=== PATIENT | female | born 1990 | race African-American/Black ===

== ENCOUNTER 2018-01-11 19:59 | Emergency (ER) | payer OTHER, SELFPAY ==
--- NOTE | 2018-01-11 20:59 | RAD REPORT ---
EXAM DESCRIPTION: RAD - Chest Single View - 01/11/2018 8:51 pm CLINICAL HISTORY: Chest pain COMPARISON: None. TECHNIQUE: AP portable chest image was obtained 2045 hours . FINDINGS: Lungs are clear. Heart size is upper normal. Vasculature within normal limits. No measurab le pleural effusion and no pneumothorax. No gross bony abnormality seen. No acute aortic findings juan alberto pected. IMPRESSION: No acute cardiopulmonary process.
[2018-01-11 21:28] LABS: Protime INR 1.08
[2018-01-11 21:29] LABS: Absolute Lymphocytes (CBC) 0.7 K/uL (0.7-4.9); Absolute Monocytes 0.3 K/uL (0.1-1.3); Absolute Neutrophil 2.7 K/uL (1.8-8.0); Basophils % 0.3 % (0-1.3); Eosinophils % 0.3 % (0-4.4); Hematocrit 30.3 % (36.0-45.0); Lymphocytes % 19.6 % (15.3-44.8); MCH 25.4 pg (27.0-35.0); MCV 77.7 fL (80-100); MPV 8.9 fL (7.6-11.3); Monocytes % 7.3 % (3.3-12.3); RBC Red Blood Cell Count 3.91 M/uL (3.86-4.86)
[2018-01-11 21:30] LABS: BUN Blood Urea Nitrogen 10 mg/dL (7-18); Bicarbonate 26 mmol/L (21-32); Glucose Level 87 mg/dL (74-106); NT PRO-BNP 22 pg/mL (<125); Potassium 3.5 mmol/L (3.5-5.1); Sodium Level 138 mmol/L (136-145)
--- NOTE | 2018-01-11 21:33 | EDPHYS ---
Physician Documentation [facility] Name: Bernadette Ugarte Age: 27 yrs Sex: Female : 1990 Arrival Date: 01/11/2018 Time: 20:04 Bed 14 Private MD: ED Physician Jasson Hodges HPI: 01/11 20:37 This 27 yrs old Black Female presents to ER via EMS with complaints of chest jr8 pain/Dizziness. 20:37 Patient stated that while in long-term had chest pain and dizziness. Stated that her blood jr8 pressure was high. Has been off of her medications for some time now. Has not had period in 2 months . Severity of symptoms: At their worst the symptoms were moderate in the emergency department the symptoms have improved. It is unknown whether or not the patient has had similar symptoms in the past. The patient has not recently seen a physician. 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 - Social history:: Smoking status: Patient/guardian denies using tobacco. - Ebola Screening: : No symptoms or risks identified at this time. ROS: 20:37 Eyes: Negative for injury, pain, redness, and discharge, ENT: Negative for injury, jr8 pain, and discharge, Neck: Negative for injury, pain, and swelling, Respiratory: Negative for shortness of breath, cough, wheezing, and pleuritic chest pain, Abdomen/GI: Negative for abdominal pain, nausea, vomiting, diarrhea, and constipation, Back: Negative for injury and pain, MS/Extremity: Negative for injury and deformity, Skin: Negative for injury, rash, and discoloration. 20:37 Cardiovascular: Positive for chest pain, Negative for edema, orthopnea, palpitations, paroxysmal nocturnal dyspnea. 20:37 Neuro: Positive for dizziness, Negative for altered mental status, gait disturbance, headache, hearing loss, loss of consciousness, numbness, seizure activity, speech changes, syncope, near syncope, tingling, tinnitus, tremor, visual changes, weakness. Exam: 20:37 Eyes: Pupils equal round and reactive to light, extra-ocular motions intact. Lids and jr8 lashes normal. Conjunctiva and sclera are non-icteric and not injected. Cornea within normal limits. Periorbital areas with no swelling, redness, or edema. ENT: Nares patent. No nasal discharge, no septal abnormalities noted. Tympanic membranes are normal and external auditory canals are clear. Oropharynx with no redness, swelling, or masses, exudates, or evidence of obstruction, uvula midline. Mucous membranes moist. Neck: Trachea midline, no thyromegaly or masses palpated, and no cervical lymphadenopathy. Supple, full range of motion without nuchal rigidity, or vertebral point tenderness. No Meningismus. Cardiovascular: Regular rate and rhythm with a normal S1 and S2. Auscultated thrill noted on the systolic beat. Normal PMI, no JVD. No pulse deficits. Respiratory: Lungs have equal breath sounds bilaterally, clear to auscultation and percussion. No rales, rhonchi or wheezes noted. No increased work of breathing, no retractions or nasal flaring. Abdomen/GI: Soft, non-tender, with normal bowel sounds. No distension or tympany. No guarding or rebound. No evidence of tenderness throughout. Back: No spinal tenderness. No costovertebral tenderness. Full range of motion. Skin: Warm, dry with normal turgor. Normal color with no rashes, no lesions, and no evidence of cellulitis. MS/ Extremity: Pulses equal, no cyanosis. Neurovascular intact. Full, normal range of motion. Neuro: Awake and alert, GCS 15, oriented to person, place, time, and situation. Cranial nerves II-XII grossly intact. Motor strength 5/5 in all extremities. Sensory grossly intact. Cerebellar exam normal. Normal gait. Vital Signs: 20:04 BP 122 / 84; Pulse 89; Resp 18; Temp 98.7; Pulse Ox 100% on R/A; Weight 104.33 kg; ea Height 5 ft. 2 in. (157.48 cm); Pain 8/10; 21:08 BP 135 / 94; Pulse 82; Resp 18; Pulse Ox 99% on R/A; aa1 21:40 BP 140 / 85; Pulse 81; Resp 16; Pulse Ox 100% ; aa1 20:04 Body Mass Index 42.07 (104.33 kg, 157.48 cm) ea MDM: 20:17 Patient medically screened. jr8 21:31 Data reviewed: vital signs, nurses notes, lab test result(s), EKG, radiologic studies, jr8 plain films, and as a result, I will discharge patient. Data interpreted: Pulse oximetry: on room air is 99 %. Interpretation: normal. Counseling: I had a detailed discussion with the patient and/or guardian regarding: the historical points, exam findings, and any diagnostic results supporting the discharge/admit diagnosis, lab results, radiology results, the need for outpatient follow up, a family practitioner, to return to the emergency department if symptoms worsen or persist or if there are any questions or concerns that arise at home. Response to treatment: the patient's symptoms have resolved after treatment. ED course: More then likely secondary to HTN. BP better after EMS gave her medication . 01/11 20:33 Order name: Basic Metabolic Panel; Complete Time: 21:01/11 20:33 Order name: CBC with Diff; Complete Time: 21:01/11 20:33 Order name: Magnesium; Complete Time: :01/11 20:33 Order name: NT PRO-BNP; Complete Time: :01/11 20:33 Order name: PT-INR; Complete Time: 21:31 01/11 20:33 Order name: Troponin (emerg Dept Use Only); Complete Time: 21:29 01/11 20:33 Order name: XRAY Chest (1 view); Complete Time: 21:00 01/11 20:33 Order name: EKG; Complete Time: 20:33 [facility] 01/11 20:33 Order name: Cardiac monitoring; Complete Time: 20:39 01/11 20:33 Order name: EKG - Nurse/Tech; Complete Time: 21:18 01/11 20:33 Order name: IV Saline Lock; Complete Time: 21:19 01/11 20:33 Order name: Labs collected and sent; Complete Time: 21:19 01/11 20:33 Order name: O2 Per Protocol; Complete Time: 20:39 01/11 20:33 Order name: O2 Sat Monitoring; Complete Time: 20:39 jr Administered Medications: No medications were administered Disposition: 01/11/18 21:32 Discharged to Home. Impression: Essential (primary) hypertension. - Condition is Stable. - Discharge Instructions: Hypertension. - Medication Reconciliation Form, Thank You Letter, Antibiotic Education, Prescription Opioid Use form. - Follow up: Private Physician; When: 1 - 2 days; Reason: Recheck today's complaints, Continuance of care, Re-evaluation by your physician. - Problem is new. - Symptoms have improved. Addendum: 01/15/2018 17:37 Co-signature as Attending Physician, Jasson Hodges MD. g s Signatures: Dispatcher [employer] EDMS Shanna Gamboa RN RN aa1 Lasha Brito PA PA jr8 Kayla Salazar RN Jasson Fonseca ea, MD MD gs Corrections: (The following items were deleted from the chart) 01/11 21:54 21:32 01/11/2018 21:32 Discharged to Home. Impression: Essential (primary) aa1 hypertension. Condition is Stable. Forms are Medication Reconciliation Form, Thank You Letter, Antibiotic Education, Prescription Opioid Use. Follow up: Private Physician; When: 1 - 2 days; Reason: Recheck today's complaints, Continuance of care, Re-evaluation by your physician. Problem is new. Symptoms have improved. jr8
--- NOTE | 2018-01-11 21:33 | ER ---
Nurse's Notes [facility] Name: Bernadette Ugarte Age: 27 yrs Sex: Female : 1990 Arrival Date: 01/11/2018 Time: 20:04 Bed 14 Private MD: Diagnosis: Essential (primary) hypertension Presentation: 01/11 20:04 Presenting complaint: EMS states: [facility] complaining of dizziness and ea being light headed. Pt is 2 months . Transition of care: patient was not received from another setting of care. Onset of symptoms was January 11, 2018. Risk Assessment: Do you want to hurt yourself or someone else? Patient reports no desire to harm self or others. Initial Sepsis Screen: Does the patient meet any 2 criteria? No. Patient's initial sepsis screen is negative. Does the patient have a suspected source of infection? No. Patient's initial sepsis screen is negative. Care prior to arrival: oxygen. 20:04 Method Of Arrival: EMS: [facility] ea 20:04 Acuity: COLIN 3 ea Triage Assessment: 20:04 General: Appears in no apparent distress. Behavior is calm, cooperative, appropriate ea for age. Pain: Complains of pain in headache Pain currently is 8 out of 10 on a pain scale. Quality of pain is described as aching. Neuro: Level of Consciousness is awake, alert, obeys commands, Oriented to person, place, time, situation. Cardiovascular: Heart tones S1 S2 present Patient's skin is warm and dry. Respiratory: Airway is patent Respiratory effort is even, unlabored, Respiratory pattern is regular, symmetrical, Breath sounds are clear bilaterally. GI: Abdomen is obese, Bowel sounds present X 4 quads. : No signs and/or symptoms were reported regarding the genitourinary system. Derm: Skin is pink, warm \T\ dry. 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 - Social history:: Smoking status: Patient/guardian denies using tobacco. - Ebola Screening: : No symptoms or risks identified at this time. Screenin:22 Abuse screen: Denies threats or abuse. Nutritional screening: No deficits noted. ea Tuberculosis screening: No symptoms or risk factors identified. Fall Risk None identified. Assessment: 20:10 General: Appears in no apparent distress. comfortable, obese, Behavior is calm, aa1 cooperative, appropriate for age. Pain: Complains of pain in scalp Quality of pain is described as aching, throbbing, Is continuous. Neuro: Level of Consciousness is awake, alert, obeys commands, Oriented to person, place, time, situation, Moves all extremities. Full function Gait is steady, Speech is normal, Facial symmetry appears normal, Pupils are PERRLA, Intact Reports dizziness, headache. Cardiovascular: Reports lightheadedness, Denies chest pain, diaphoresis, palpitations, shortness of breath, Heart tones S1 S2 present Rhythm is regular. Respiratory: Airway is patent Respiratory effort is even, unlabored, Respiratory pattern is regular, symmetrical. GI: No signs and/or symptoms were reported involving the gastrointestinal system. : No signs and/or symptoms were reported regarding the genitourinary system. EENT: No signs and/or symptoms were reported regarding the EENT system. Derm: Skin is intact, is healthy with good turgor, Skin is pink, warm \T\ dry. Musculoskeletal: Circulation, motion, and sensation intact. Capillary refill < 3 seconds. 21:08 Reassessment: Patient appears in no apparent distress at this time. Patient and/or aa1 family updated on plan of care and expected duration. Pain level reassessed. Patient is alert, oriented x 3, equal unlabored respirations, skin warm/dry/pink. Awaiting lab results. 21:45 Reassessment: Patient appears in no apparent distress at this time. Patient is alert, aa1 oriented x 3, equal unlabored respirations, skin warm/dry/pink. Discussed d/c \T\ f/u instructions with pt; denies questions or concerns at this time Patient states feeling better. Vital Signs: 20:04 BP 122 / 84; Pulse 89; Resp 18; Temp 98.7; Pulse Ox 100% on R/A; Weight 104.33 kg; ea Height 5 ft. 2 in. (157.48 cm); Pain 8/10; 21:08 BP 135 / 94; Pulse 82; Resp 18; Pulse Ox 99% on R/A; aa1 21:40 BP 140 / 85; Pulse 81; Resp 16; Pulse Ox 100% ; aa1 20:04 Body Mass Index 42.07 (104.33 kg, 157.48 cm) ea ED Course: 20:04 Patient arrived in ED. ea 20:04 Patient has correct armband on for positive identification. Bed in low position. Call ea light in reach. Side rails up X2. PD at bedside. 20:08 Triage completed. ea 20:15 Lasha Brito PA is PHCP. jr8 20:15 Jasson Hodges MD is Attending Physician. jr8 20:22 Arm band placed on right wrist. ea 20:36 Shanna Gamboa, JENNIFER is Primary Nurse. aa1 20:50 XRAY Chest (1 view) In Process Unspecified. EDMS 20:50 Initial lab(s) drawn, by me, sent to lab. Inserted saline lock: 22 gauge in left aa1 forearm, using aseptic technique. Blood collected. 20:55 EKG done, by ED staff, reviewed by Jasson Hodges MD. aa1 21:52 No provider procedures requiring assistance completed. IV discontinued, intact, aa1 bleeding controlled, No redness/swelling at site. Pressure dressing applied. Administered Medications: No medications were administered Outcome: 21:32 Discharge ordered by . jr8 21:52 Discharged to home ambulatory, with family. aa1 21:52 Condition: good 21:52 Discharge instructions given to patient, Instructed on discharge instructions, follow up and referral plans. medication usage, Demonstrated understanding of instructions, follow-up care, medications. 21:54 Patient left the ED. aa1 Signatures: Dispatcher [employer] EDMI Shanna Gamboa, JENNIFER RN aa1 Lasha Brito PA PA jrKayla Hobson RN RN ea Corrections: (The following items were deleted from the chart) 20:19 20:04 Presenting complaint: EMS states: [facility] complaining of ea dizziness and being light headed. ea
[2018-01-11 22:06] VITALS: TEMP 98.7
[2018-01-11 22:07] VITALS: BP 135/94; O2SAT 99
--- NOTE | 2018-01-12 07:08 | EKG ---
Test Date: 2018-01-11 Test Time: 20:56:45 [facility] [place]: [facility] MEASUREMENT RESULTS: Intervals: Rate: 77 MO: 186 QRSD: 92 QT: 388 QTc: 439 Marshall: P: 35 MO: 186 QRS: 21 T: 33 INTERPRETIVE STATEMENTS: Normal sinus rhythm Normal ECG No previous ECG available for comparison Electronically Signed On 01-12-18 07:06:59 CDT by Myles Stein
== END 2018-01-11 21:54 | disposition home or self-care (01) ==
LOC: ER 19:59
DX: I10 Essential (primary) hypertension (principal)
CPT/HCPCS: 36415; 71045; 80048; 83735; 83880; 84484; 85025; 85610; 93005; 99284

== ENCOUNTER 2018-03-01 12:52 | Emergency (ER) | payer SELFPAY ==
--- NOTE | 2018-03-01 13:21 | ER ---
Nurse's Notes [facility] Name: Bernadette Ugarte Age: 27 yrs Sex: Female : 1990 Arrival Date: 03/01/2018 Time: 12:55 Bed 20 Private MD: None, None Diagnosis: Elevated blood-pressure reading, without diagnosis of hypertension Presentation: 03/01 12:57 Presenting complaint: Patient states: mandeep feet swelling and hand swelling x 1 week. "I sv think my BP is up.". Transition of care: patient was not received from another setting of care. Onset of symptoms was February 22, 2018. Care prior to arrival: None. 12:57 Method Of Arrival: Ambulatory sv 12:57 Acuity: COLIN 3 sv 13:02 Note Pt brought to the room and informed we were going to need a urine sample. Pt sv stated that she needed to go outside to get her cousin to tell her she was in here because she doesn't have a phone. Triage Assessment: 13:00 General: Appears in no apparent distress. comfortable, obese, Behavior is calm, sv cooperative, appropriate for age. Pain: Denies pain. EENT: No signs and/or symptoms were reported regarding the EENT system. Neuro: Level of Consciousness is awake, alert, obeys commands, Oriented to person, place, time, situation, Moves all extremities. Full function Reports intermittent blurry vision. Respiratory: Respiratory effort is even, unlabored, Respiratory pattern is regular, symmetrical. Derm: Skin is normal. 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 - Social history:: Smoking status: Patient/guardian denies using tobacco, Patient/guardian denies using alcohol. - Ebola Screening: : No symptoms or risks identified at this time. Vital Signs: 12:58 BP 148 / 78; Pulse 111; Resp 18; Temp 98.7; Pulse Ox 100% ; Weight 103.42 kg; Height 5 sv ft. 2 in. (157.48 cm); Pain 0/10; 12:58 Body Mass Index 41.70 (103.42 kg, 157.48 cm) sv ED Course: 12:55 Patient arrived in ED. sb2 12:55 None, None is Private Physician. sb2 12:57 Triage completed. sv 12:58 Arm band placed on. sv 13:03 [facility] pm1 13:03 Theo Pimentel MD is Attending Physician. pm1 13:05 Elin Lomeli, RN is Primary Nurse. rb1 Administered Medications: No medications were administered Outcome: 13:22 Patient left the ED. sv Signatures: Verona Reynolds RN RN sv Elin Lomeli RN RN rb1 Kt Esteban NP GREASE BUFFER pm1 Lucy Lagos sb2 Corrections: (The following items were deleted from the chart) 13:01 12:58 Pulse 111bpm; Resp 18bpm; Pulse Ox 100%; Temp 98.7F; 103.42 kg; Height 5 ft. 2 sv in.; BMI: 41.7; Pain 0/10; sv
--- NOTE | 2018-03-01 13:21 | EDPHYS ---
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 - Social history:: Smoking status: Patient/guardian denies using tobacco, Patient/guardian denies using alcohol. - Ebola Screening: : No symptoms or risks identified at this time. Vital Signs: 12:58 BP 148 / 78; Pulse 111; Resp 18; Temp 98.7; Pulse Ox 100% ; Weight 103.42 kg; Height 5 sv ft. 2 in. (157.48 cm); Pain 0/10; 12:58 Body Mass Index 41.70 (103.42 kg, 157.48 cm) sv MDM: 13:03 Patient medically screened. pm1 13:20 Data reviewed: vital signs. Data interpreted: Pulse oximetry: on room air is 100 %. pm1 Interpretation: normal. ED course: Patient not present in the room for evaluation. Patient told the triage nurse that she need to get something out of the car and never returned. Administered Medications: No medications were administered Disposition: 03/01/18 13:20 Patient left the facility before being seen by provider. Preliminary diagnosis is Elevated blood-pressure reading, without diagnosis of hypertension. - Patient left due to (see nurse's notes). - Condition is Undetermined. - Problem is new. - Symptoms are unchanged. Addendum: 03/03/2018 13:25 Co-signature as Attending Physician, Theo Pimentel MD I agree with the assessment and k dr plan of care. Signatures: Verona Reynolds, JENNIFER RN Theo Ames MD MD kdr Marinas, Patrick, NP DIE SIZER pm1 Corrections: (The following items were deleted from the chart) 03/01 13:22 13:20 03/01/2018 13:20 Patient left the facility before being seen by provider. sv Preliminary diagnosis is Elevated blood-pressure reading, without diagnosis of hypertension. Reason stated they are leaving due to (see nurse's notes). Condition is Undetermined. Problem is new. Symptoms are unchanged. pm1
[2018-03-01 13:41] VITALS: BP 148/78; TEMP 98.7; O2SAT 100
== END 2018-03-01 13:22 | disposition left against medical advice (07) ==
LOC: ER 12:52
DX: Z53.21 Procedure and treatment not carried out due to patient leaving prior to being seen by health care provider (principal)
CPT/HCPCS: 99281

== ENCOUNTER 2021-08-23 05:49 | Emergency (ER) | payer SELFPAY ==
[2021-08-23] MEDS ORDERED: AMOX/K CLAV 875 MG TAB ONE (06:34)
[2021-08-23] MEDS ORDERED: IBUPROFEN 400 MG TAB ONE (06:35)
[2021-08-23] MEDS ORDERED: HYDROCODONE/APAP 5/325 MG TAB ONE (06:35)
--- NOTE | 2021-08-23 06:38 | EDPHYS ---
Physician Documentation [facility] Name: Bernadette Ugarte Age: 31 yrs Sex: Female : 1990 Arrival Date: 08/23/2021 Time: 05:51 Bed 20 Private MD: ED Physician Quique Pacheco HPI: 08/23 06:25 This 31 yrs old Black Female presents to ER via Ambulatory with complaints of FACIAL cp PAIN. 06:25 The patient presents with pain. The problem is located in the left upper teeth. Onset: cp The symptoms/episode began/occurred 2 day(s) ago. Duration: The symptoms are continuous, and are steadily getting worse. Associated signs and symptoms: Pertinent positives: pain, swelling, facial, Pertinent negatives: dysphagia, fever, inability to eat, vomiting. 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 - Social history:: Smoking status: Patient reports the use of cigarette tobacco products, denies chronic smoking, but will smoke occasionally, Patient/guardian denies using alcohol, street drugs. ROS: 06:30 Constitutional: Negative for body aches, chills, fever, poor PO intake. cp 06:30 ENT: Positive for dental pain, ear pain, sinus congestion, sinus pain, Negative for cp drainage from ear(s), rhinorrhea, sore throat, difficulty swallowing, difficulty handling secretions. 06:30 Respiratory: Negative for cough, shortness of breath, wheezing. 06:30 Abdomen/GI: Negative for nausea, vomiting, diarrhea. 06:30 Neuro: Negative for altered mental status, headache, weakness. 06:30 All other systems are negative. Exam: 06:32 Constitutional: The patient appears in no acute distress, alert, awake, non-toxic, well cp developed, well nourished, obese. 06:32 Head/face: Sinus tenderness, that is moderate, is located over the left ethmoid sinus and left maxillary sinus. 06:32 Eyes: Periorbital structures: appear normal, Conjunctiva: normal, no exudate, no injection, Sclera: no appreciated abnormality, Lids and lashes: appear normal, bilaterally. 06:32 ENT: External ear(s): are unremarkable, Ear canal(s): are normal, clear, TM's: bulging, is not appreciated, bilaterally, dullness, bilaterally, erythema, is not appreciated, bilaterally, Nose: is normal, Mouth: Lips: moist, Oral mucosa: pink and intact, moist, Gums: normal with healthy appearance, Tongue: is normal, Posterior pharynx: Airway: no evidence of obstruction, patent, erythema, is not appreciated, exudate, is not appreciated, Dental exam: abscess, is not appreciated, dental caries, that is mild, gum swelling, not appreciated, pain, that is mild, specifically in the upper left lateral incisor (#10), Voice: is normal. 06:32 Neck: ROM/movement: is normal, is supple, without pain, no range of motions limitations. 06:32 Chest/axilla: Inspection: normal. 06:32 Cardiovascular: Rate: normal. 06:32 Respiratory: the patient does not display signs of respiratory distress, Respirations: normal. Vital Signs: 05:54 BP 162 / 96; Pulse 99; Resp 17 S; Temp 99.2(O); Pulse Ox 99% on R/A; Weight 127.01 kg lg3 (R); Height 5 ft. 2 in. (157.48 cm) (R); Pain 10/10; 06:58 BP 158 / 86; Pulse 90; Resp 18; Temp 98.8; Pulse Ox 99% on R/A; Pain 4/10; valeriano 05:54 Body Mass Index 51.21 (127.01 kg, 157.48 cm) lg3 MDM: 06:15 Patient medically screened. cp 06:30 ED course: no results found on inquiry of [place] prescription monitor website. cp 06:37 Data reviewed: vital signs, nurses notes, and as a result, I will discharge patient. cp 08/23 06:24 [facility] Order: may give hydrocodone if patient has ride; Complete Time: 06:37 cp Administered Medications: 06:36 Drug: Ibuprofen 800 mg Route: PO; valeriano 06:56 Follow up: Response: No adverse reaction; Pain is decreased valeriano 06:36 Drug: HYDROcodone-acetaminophen 5 mg-325 mg 2 tabs Route: PO; valeriano 06:56 Follow up: Response: No adverse reaction; Pain is decreased valeriano 06:37 Drug: Augmentin (Amoxicillin-Clavulanate) 875 mg Route: PO; valeriano 06:56 Follow up: Response: No adverse reaction; Pain is decreased valeriano Disposition Summary: 08/23/21 06:37 Discharge Ordered Location: Home cp Problem: new cp Symptoms: have improved cp Condition: Stable cp Diagnosis - Disorder of teeth and supporting structures, unspecified cp Followup: cp - With: Private Physician - When: 2 - 3 days - Reason: Recheck today's complaints Discharge Instructions: - Discharge Summary Sheet cp - Dental Pain cp Forms: - Medication Reconciliation Form cp - Thank You Letter cp - Antibiotic Education cp - Prescription Opioid Use cp Prescriptions: - Augmentin 875-125 mg Oral Tablet - take 1 tablet by ORAL route every 12 hours for 10 days; 20 tablet; Refills: 0, cp Product Selection Permitted - Ibuprofen 800 mg Oral Tablet - take 1 tablet by ORAL route every 8 hours As needed take with food; 30 tablet; cp Refills: 0, Product Selection Permitted - Tylenol-Codeine #3 300 mg-30 mg Oral - take 2 tablet by ORAL route every 8-10 hours; 12 tablet; Refills: 0, Product cp Selection Permitted Addendum: 08/29/2021 19:31 Co-signature as Attending Physician, Quique Pacheco MD. m h7 Signatures: Matias Burnett PA PA cp Rosio Friedman, JENNIFER RODRIGUEZ 3 Quique Pacheco MD MD 7 Daniella Resendiz RN RN valeriano
--- NOTE | 2021-08-23 06:38 | ER ---
Nurse's Notes [facility] Name: Bernadette Ugarte Age: 31 yrs Sex: Female : 1990 Arrival Date: 08/23/2021 Time: 05:51 Bed 20 Private MD: Diagnosis: Disorder of teeth and supporting structures, unspecified Presentation: 08/23 05:54 Chief complaint: Patient states: left sided toothache started a few days ago. pain now lg3 dispersed throughout face, eyes, sinuses, head and ear. mild facial swelling noted. Coronavirus screen: Client denies travel out of the [place] in the last 14 days. At this time, the client does not indicate any symptoms associated with coronavirus-19. Ebola Screen: No symptoms or risks identified at this time. Initial Sepsis Screen: Does the patient meet any 2 criteria? No. Patient's initial sepsis screen is negative. Does the patient have a suspected source of infection? No. Patient's initial sepsis screen is negative. Risk Assessment: Do you want to hurt yourself or someone else? Patient reports no desire to harm self or others. Onset of symptoms is unknown. 05:54 Method Of Arrival: Ambulatory lg3 05:54 Acuity: COLIN 4 lg3 Triage Assessment: 05:59 General: Appears in no apparent distress. uncomfortable, Behavior is calm, cooperative, lg3 crying. Pain: Complains of pain in face, left ear, left eye and nose Pain currently is 10 out of 10 on a pain scale. EENT: Oral mucosa is moist. Reports pain. Neuro: No deficits noted. Level of Consciousness is awake, alert, obeys commands, Oriented to person, place, time, situation. Cardiovascular: No deficits noted. Denies chest pain, shortness of breath. Respiratory: No deficits noted. Airway is patent Trachea midline Respiratory effort is even, unlabored, Respiratory pattern is regular, symmetrical. GI: No deficits noted. No signs and/or symptoms were reported involving the gastrointestinal system. : No deficits noted. No signs and/or symptoms were reported regarding the genitourinary system. Derm: Skin is intact, is healthy with good turgor, Skin is dry, mild left sided facial swelling noted. Musculoskeletal: No deficits noted. No signs and/or symptoms reported regarding the musculoskeletal system. Circulation, motion, and sensation intact. Capillary refill < 3 seconds, Range of motion: intact in all extremities. 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 - Social history:: Smoking status: Patient reports the use of cigarette tobacco products, denies chronic smoking, but will smoke occasionally, Patient/guardian denies using alcohol, street drugs. Screenin:03 Abuse screen: Denies threats or abuse. Denies injuries from another. Nutritional lg3 screening: No deficits noted. Tuberculosis screening: No symptoms or risk factors identified. Fall Risk None identified. Assessment: 06:05 Reassessment: The pt has been recv'd to room #20. valeriano 06:19 Reassessment: No changes from previously documented assessment. It is of note that the valeriano swelling to the left side of the pt's face, is minimal. She reports having had a toothache a few days ago and now, left sided facial pain, left sided earache and left sided mouth pain. 06:44 Reassessment: Unbelievably, the pain meds have already remedied her pain. The pt has valeriano denied that she is and has called for a ride. She is no longer requiring the lights dimmed, or crying. She acknowledged understanding of dc instructions. 06:57 Reassessment: The pt is dc'd and has all of her paperwork, she is simply waiting for valeriano her ride home. Vital Signs: 05:54 BP 162 / 96; Pulse 99; Resp 17 S; Temp 99.2(O); Pulse Ox 99% on R/A; Weight 127.01 kg lg3 (R); Height 5 ft. 2 in. (157.48 cm) (R); Pain 10/10; 06:58 BP 158 / 86; Pulse 90; Resp 18; Temp 98.8; Pulse Ox 99% on R/A; Pain 4/10; valeriano 05:54 Body Mass Index 51.21 (127.01 kg, 157.48 cm) 3 ED Course: 05:51 Patient arrived in ED. 2 05:59 Triage completed. lg3 05:59 Arm band placed on left wrist. 3 06:04 Quique Pacheco MD is Attending Physician. [facility] 06:05 Daniella Resendiz, RN is Primary Nurse. valeriano 06:12 Matias Burnett PA is PHCP. cp 06:21 Patient has correct armband on for positive identification. Bed in low position. Call valeriano light in reach. 06:21 No provider procedures requiring assistance completed. Inserted saline lock: 20 gauge valeriano in right antecubital area, using aseptic technique. 06:59 Patient did not have IV access during this emergency room visit. valeriano Administered Medications: 06:36 Drug: Ibuprofen 800 mg Route: PO; valeriano 06:56 Follow up: Response: No adverse reaction; Pain is decreased valeriano 06:36 Drug: HYDROcodone-acetaminophen 5 mg-325 mg 2 tabs Route: PO; valeriano 06:56 Follow up: Response: No adverse reaction; Pain is decreased valeriano 06:37 Drug: Augmentin (Amoxicillin-Clavulanate) 875 mg Route: PO; valeriano 06:56 Follow up: Response: No adverse reaction; Pain is decreased valeriano Outcome: 06:21 Condition: stable valeriano 06:37 Discharge ordered by . cp 06:59 Discharged to home waiting for a ride valeriano 06:59 Discharge instructions given to patient, Instructed on discharge instructions, follow up and referral plans. Demonstrated understanding of instructions, Prescriptions given X 3. 07:44 Patient left the ED. waller Signatures: Matias Burnett PA PA cp Gibson, Lacie RN JENNIFER [facility] Quique Pacheco MD MD [facility] Rachel Rehman [facility] Daniella Resendiz RN RN bo Au-StagerKatharine RN RN waller
[2021-08-23 07:51] VITALS: O2SAT 99
[2021-08-23 07:52] VITALS: BP 158/86; TEMP 98.8
== END 2021-08-23 07:44 | disposition home or self-care (01) ==
LOC: ER 05:49
DX: K08.89 Other specified disorders of teeth and supporting structures (principal); F17.210 Nicotine dependence, cigarettes, uncomplicated
CPT/HCPCS: 99283

== ENCOUNTER 2022-05-27 11:48 | Emergency (ER) | payer SELFPAY ==
--- OUTSIDE RECORDS SUMMARY | 2022-05-27 11:51 | XMS REPORT | Continuity of Care Document ---
:1990 Author Organization [facility] t Address [address] [place] [address] Care Team Providers Name Role Phone uRel Hanna Primary Care Physician [phone] Problems This patient has no known problems. Allergies, Adverse Reactions, Alerts This patient has no known allergies or adverse reactions. Medications Ordered Filled Start Stop Current Ordering Indication Dosage Frequency Signature Comments Components Source Medication Medication Date Date Medication? Clinician (SIG) Name Name TAKE 1 No TABLET BY 1-02 MOUTH TWICE 00:00: DAILY 00 Dose 2021-0 No Unknown 07-27 00:00: 00 azithromyci 2020-0 No 2mg n 500 mg 6-22 tablet 00:00: 00 metronidazo 2020-0 No 1mg le 500 mg 6-22 tablet 00:00: 00 Flagyl 500 1 No 1mg mg tablet 06-02 00:00: 00 azithromyci 2019-1 No 2mg n 500 mg 1-12 tablet 00:00: 00 metronidazo 2018-0 No 1mg le 500 mg 6-20 tablet 00:00: 00 Diflucan 2019-0 No 1mg 150 mg 6-20 tablet 00:00: 00 Flagyl 500 2016-0 No 1mg mg tablet 07-22 00:00: 00 Vital Signs Vital Name Observation Time Observation Value Comments Source BP Systolic 2022-05-25 08:23:00 164 mm[Hg] BP Diastolic 2022-05-25 08:23:00 90 mm[Hg] Weight Measured 2022-05-25 08:23:00 282.60 pounds Height Measured 2022-05-25 08:23:00 63.00 inches Body Temperature 2022-05-25 08:23:00 97.10 degrees Heart Rate 2022-05-25 08:23:00 83.00 /min Respiratory Rate 2022-05-25 08:23:00 25.00 /min BP Systolic 2021-07-27 14:36:00 136 mm[Hg] BP Diastolic 2021-07-27 14:36:00 85 mm[Hg] Weight Measured 2021-07-27 14:36:00 288.80 pounds Height Measured 2021-07-27 14:36:00 63.00 inches Body Temperature 2021-07-27 14:36:00 97.10 degrees Heart Rate 2021-07-27 14:36:00 81.00 /min Respiratory Rate 2021-07-27 14:36:00 BP Systolic 2021-02-08 15:17:00 130 mm[Hg] BP Diastolic 2021-02-08 15:17:00 78 mm[Hg] Weight Measured 2021-02-08 15:17:00 272.40 pounds Height Measured 2021-02-08 15:17:00 63.00 inches Body Temperature 2021-02-08 15:17:00 97.90 degrees Heart Rate 2021-02-08 15:17:00 94.00 /min Respiratory Rate 2021-02-08 15:17:00 BP Systolic 2020-11-10 14:22:00 143 mm[Hg] BP Diastolic 2020-11-10 14:22:00 96 mm[Hg] Weight Measured 2020-11-10 14:22:00 260.00 pounds Height Measured 2020-11-10 14:22:00 63.00 inches Body Temperature 2020-11-10 14:22:00 98.10 degrees Heart Rate 2020-11-10 14:22:00 83.00 /min Respiratory Rate 2020-11-10 14:22:00 BP Systolic 2020-03-27 14:12:00 130 mm[Hg] BP Diastolic 2020-03-27 14:12:00 80 mm[Hg] Weight Measured 2020-03-27 14:12:00 270.20 pounds Height Measured 2020-03-27 14:12:00 63.00 inches Body Temperature 2020-03-27 14:12:00 98.20 degrees Heart Rate 2020-03-27 14:12:00 69.00 /min Respiratory Rate 2020-03-27 14:12:00 16.00 /min Respiratory Rate 2018-11-08 16:56:00 16.00 /min BP Systolic 2018-11-08 16:56:00 127 mm[Hg] BP Diastolic 2018-11-08 16:56:00 76 mm[Hg] Weight Measured 2018-11-08 16:56:00 265.00 pounds Height Measured 2018-11-08 16:56:00 63.00 inches Body Temperature 2018-11-08 16:56:00 98.60 degrees Heart Rate 2018-11-08 16:56:00 94.00 /min BP Systolic 2016-07-22 10:55:00 131 mm[Hg] BP Diastolic 2016-07-22 10:55:00 85 mm[Hg] Weight Measured 2016-07-22 10:55:00 232.00 pounds Height Measured 2016-07-22 10:55:00 63.00 inches Body Temperature 2016-07-22 10:55:00 98.40 degrees Heart Rate 2016-07-22 10:55:00 88.00 /min Respiratory Rate 2016-07-22 10:55:00 Procedures This patient has no known procedures. Plan of Care Planned Activity Planned Date Details Comments Source Goal Plan of Care Note [code = 50976-6] Goal Plan of Care Note [code = 20756-2] Goal Plan of Care Note [code = 37664-7] Goal Plan of Care Note [code = 51961-2] Goal Plan of Care Note [code = 87697-0] Goal Plan of Care Note [code = 86630-2] Goal Plan of Care Note [code = 27013-5] Goal Plan of Care Note [code = 30187-2] Goal Plan of Care Note [code = 93918-1] Goal Plan of Care Note [code = 67087-1] Goal Plan of Care Note [code = 36050-8] Goal Plan of Care Note [code = 52487-9] Goal Plan of Care Note [code = 84802-5] Goal Plan of Care Note [code = 63858-6] Goal Plan of Care Note [code = 13756-2] Goal Plan of Care Note [code = 00070-2] Goal Plan of Care Note [code = 60408-8] Goal Plan of Care Note [code = 75022-2] Goal Plan of Care Note [code = 42809-2] Goal Plan of Care Note [code = 72764-3] Encounters Start End Encounter Admission Attending Care Care Encounter Source Date/Time Date/Time Type Type Clinicians Facility Department ID 2022-05-25 2022-05-25 Outpatient SHREYAS SFA [id number] Mauro 08:20:46 08:20:46 0104 Michele Jordan 2022-05-25 2022-05-25 Outpatient [id number] 00:00:00 00:00:00 Visit [id number] [id number] Results Test Description Test Time Test Comments Results Result Comments Source GC AND CHLAMYDIA, AMPLIFIED, URINE 2020-11-11 00:00:00 Test Item Value Reference Range Interpretation Comme nts GONORRHEA, NAAT (test code = 40254) NEGATIVE CHLAMYDIA, NAAT (test code = 67889) NEGATIVE GC AND CHLAMYDIA, AMPLIFIED, [id number] 00:00:00 Test Item Value Reference Range Interpretation Comments GONORRHEA, NAAT (test code = 53973) NEGATIVE CHLAMYDIA, NAAT (test code = 47149) NEGATIVE VAGINAL PATHOGENS DNA [id number] 00:00:00 Test Item Value Reference Range Interpretation Comments JAQUELIN SPECIES (test code = ) NEGATIVE G. VAGINALIS (test code = 99290) POSITIVE T. VAGINALIS (test code = 69243) POSITIVE VAGINAL PATHOGENS DNA [id number] 00:00:00 Test Item Value Reference Range Interpretation Comments JAQUELIN SPECIES (test code = ) NEGATIVE G. VAGINALIS (test code = 53369) POSITIVE T. VAGINALIS (test code = 89286) POSITIVE CHLAMYDIA, AMPLIFIED, [id number] 00:00:00 Test Item Value Reference Range Interpretation Comments CHLAMYDIA, NAAT (test code = 01290) POSITIVE CHLAMYDIA, AMPLIFIED, [id number] 00:00:00 Test Item Value Reference Range Interpretation Comments CHLAMYDIA, NAAT (test code = 87320) POSITIVE GC, AMPLIFIED, [id number] 00:00:00 Test Item Value Reference Range Interpretation Comments GONORRHEA, NAAT (test code = 86625) NEGATIVE GC, AMPLIFIED, [id number] 00:00:00 Test Item Value Reference Range Interpretation Comments GONORRHEA, NAAT (test code = 54140) NEGATIVE PAP TEST, THINPREP, [id number] 00:00:00 Test Item Value Reference Range Interpretation Comments SOURCE: (test code = Cervical/Endocervical 8001) SLIDES: (test code = 1 8011) LMP: (test code = 8021) 11/02/2018 SPECIMEN ADEQUACY: (NOTE) (test code = 56423) INTERPRETATION: (test NILM/NO EPITH. code = 46117) ABNORMALITY;SEE BELOW DIRECTOR OF EDUCATION: (test Vincent code = 8101) ELANA Rollins(ASCP) LOCATION: (test code = (NOTE) 98802) CPT: (test code = 8140) (NOTE) PAP TEST, THINPREP, [id number] 00:00:00 Test Item Value Reference Range Interpretation Comments SOURCE: (test code = Cervical/Endocervical 8001) SLIDES: (test code = 1 8011) LMP: (test code = 8021) 11/02/2018 SPECIMEN ADEQUACY: (NOTE) (test code = 28640) INTERPRETATION: (test NILM/NO EPITH. code = 44127) ABNORMALITY;SEE BELOW DIRECTOR OF EDUCATION: (test Vincent code = 8101) ELANA Rollins(ASCP) LOCATION: (test code = (NOTE) 38022) CPT: (test code = 8140) (NOTE) HPV HIGH RISK WITH GENOTYPE, [id number] 00:00:00 Test Item Value Reference Range Interpretation Comments HPV HIGH RISK INTERP (test code = NEGATIVE 18770) HPV 16 (test code = 90098) NEGATIVE HPV 18 (test code = 60929) NEGATIVE HPV, HR, OTHER GENOTYPES (test code NEGATIVE = 67422) HPV HIGH RISK WITH GENOTYPE, [id number] 00:00:00 Test Item Value Reference Range Interpretation Comments HPV HIGH RISK INTERP (test code = NEGATIVE 91407) HPV 16 (test code = 50959) NEGATIVE HPV 18 (test code = 13230) NEGATIVE HPV, HR, OTHER GENOTYPES (test code NEGATIVE = 96868) VAGINAL PATHOGENS DNA [id number] 00:00:00 Test Item Value Reference Range Interpretation Comments JAQUELIN SPECIES (test code = 63820) NEGATIVE G. VAGINALIS (test code = ) POSITIVE T. VAGINALIS (test code = ) NEGATIVE VAGINAL PATHOGENS DNA [id number] 00:00:00 Test Item Value Reference Range Interpretation Comments JAQUELIN SPECIES (test code = ) NEGATIVE G. VAGINALIS (test code = 39949) POSITIVE T. VAGINALIS (test code = 16165) NEGATIVE VAGINAL PATHOGENS DNA [id number] 00:00:00 Test Item Value Reference Range Interpretation Comments JAQUELIN SPECIES (test code = ) NEGATIVE G. VAGINALIS (test code = 66619) POSITIVE T. VAGINALIS (test code = 41595) NEGATIVE VAGINAL PATHOGENS DNA [id number] 00:00:00 Test Item Value Reference Range Interpretation Comments JAQUELIN SPECIES (test code = ) NEGATIVE G. VAGINALIS (test code = ) POSITIVE T. VAGINALIS (test code = 48655) NEGATIVE ACUTE HEPATITIS [id number] 00:00:00 Test Item Value Reference Range Interpretation Comments HEPATITIS A IgM (test code = NON-REACTIVE 02234) HEPATITIS B CORE IgM (test code NON-REACTIVE = 4644) HEPATITIS B SURF AG (test code = NON-REACTIVE 2739) HEPATITIS C ANTIBODY (test code NON-REACTIVE = 4675) INTERPRETATION HEPATITIS A: (NOTE) (test code = 2552) INTERPRETATION HEPATITIS B: (NOTE) (test code = 16035) INTERPRETATION HEPATITIS C: (NOTE) (test code = 25086) ACUTE HEPATITIS [id number] 00:00:00 Test Item Value Reference Range Interpretation Comments HEPATITIS A IgM (test code = NON-REACTIVE 48639) HEPATITIS B CORE IgM (test code NON-REACTIVE = 4644) HEPATITIS B SURF AG (test code = NON-REACTIVE 2739) HEPATITIS C ANTIBODY (test code NON-REACTIVE = 4675) INTERPRETATION HEPATITIS A: (NOTE) (test code = 2552) INTERPRETATION HEPATITIS B: (NOTE) (test code = 06271) INTERPRETATION HEPATITIS C: (NOTE) (test code = 86095) HIV AB/AG COMBO RFLX [id number] 00:00:00 Test Item Value Reference Range Interpretation Comments HIV 1/2 4TH GEN, RFLX CONF (test NON-REACTIVE code = 3514) HIV AB/AG COMBO RFLX [id number] 00:00:00 Test Item Value Reference Range Interpretation Comments HIV 1/2 4TH GEN, RFLX CONF (test NON-REACTIVE code = 3514) [id number] 00:00:00 Test Item Value Reference Range Interpretation Comments RPR RESULT (test code = NON-REACTIVE 3501) RPR TITER (test code = 3500) NOT INDIC. TITER [id number] 00:00:00 Test Item Value Reference Range Interpretation Comments RPR RESULT (test code = NON-REACTIVE 3501) RPR TITER (test code = 3500) NOT INDIC. TITER [id number] 00:00:00 Test Item Value Reference Range Interpretation Comments RPR RESULT (test code = NON-REACTIVE 3501) RPR TITER (test code = 3500) NOT INDIC. TITER RUBELLA ANTIBODY [id number] 00:00:00 Test Item Value Reference Range Interpretation Comments RUBELLA ANTIBODY SCREEN (test code = 42 IU/ML 4600) RUBELLA IgG INTERP (test code = REACTIVE 25514) RUBELLA ANTIBODY [id number] 00:00:00 Test Item Value Reference Range Interpretation Comments RUBELLA ANTIBODY SCREEN (test code = 42 IU/ML 4600) RUBELLA IgG INTERP (test code = REACTIVE 77983)
--- NOTE | 2022-05-27 13:08 | RAD REPORT ---
EXAM DESCRIPTION: US - Transvaginal Study Probe - 05/27/2022 12:52 pm CLINICAL HISTORY: VAGINAL BLEEDING COMPARISON: No comparisons TECHNIQUE: Endovaginal sonography was performed. FINDINGS: No gestational sac or sac remnant in the endometrial cavity. Endometrial tissue is 8 mm in maximum thickness with no endometrial mass or polyp. No hematoma, abnormal fluid collection or other endometrial process seen. Uterus is normal size. No significant or suspicious myometrial finding. No blood or fluid in the cul de sac. A 4.5 centimeter thin-walled anechoic cyst is present in the right ovary. No septation or mural nodul e. Additional small cysts or follicles seen. Blood flow is demonstrated in the right ovarian stroma. No solid right ovarian or right adnexal mass. No mass of the left adnexa. Left ovary was not well visualized due to positioning deep posterior yan in of the uterus. There is no suspicion for an ovarian mass on the right. IMPRESSION: Right ovarian 4.5 centimeter cyst. No suspicious sonographic characteristics other than size. No uterine abnormalities identified.
[2022-05-27 13:11] LABS: Urine Blood 2+ (Negative); Urine Glucose Negative (Negative); Urine Protein Negative (Negative); Urine pH 6.5 (5.0-7.0)
[2022-05-27 13:12] LABS: Absolute Lymphocytes (CBC) 1.1 K/uL (0.7-4.9); Hematocrit 27.6 % (36.0-45.0); Lymphocytes % 20.3 % (15.3-44.8); MCV 75.3 fL (80-100); RBC Red Blood Cell Count 3.67 M/uL (3.86-4.86)
[2022-05-27 13:38] LABS: Potassium 3.7 mmol/L (3.5-5.1); Thyroid Stimulating Hormone 3.26 uIU/mL (0.358-3.740)
[2022-05-27 13:56] LABS: Ferritin 6.2 ng/mL (8-388)
--- NOTE | 2022-05-27 15:01 | ER ---
Nurse's Notes [facility] Name: Bernadette Ugarte Age: 32 yrs Sex: Female : 1990 Arrival Date: 05/27/2022 Time: 11:50 Bed 25 Private MD: Diagnosis: Iron deficiency anemia, unspecified;Dysmenorrhea, unspecified;Other ovarian cysts Presentation: 05/27 12:14 Chief complaint: Patient states: Pt reports menstrual bleeding since 05/14/2022. kb3 Coronavirus screen: Vaccine status: Patient reports being unvaccinated. Client denies travel out of the [place] in the last 14 days. Ebola Screen: Patient negative for fever greater than or equal to 101.5 degrees Fahrenheit, and additional compatible Ebola Virus Disease symptoms Patient denies exposure to infectious person. Patient denies travel to an Ebola-affected area in the 21 days before illness onset. Initial Sepsis Screen: Does the patient meet any 2 criteria? No. Patient's initial sepsis screen is negative. Does the patient have a suspected source of infection? No. Patient's initial sepsis screen is negative. Risk Assessment: Do you want to hurt yourself or someone else? Patient reports no desire to harm self or others. Onset of symptoms was May 14, 2022. 12:14 Method Of Arrival: Ambulatory kb3 12:14 Acuity: COLIN 3 kb3 Triage Assessment: 12:18 General: Appears in no apparent distress. Behavior is calm, cooperative. Pain: Denies kb3 pain. : Reports vaginal bleeding that is bright red, with clots, Denies burning with urination, inability to void, urinary frequency, urgency. 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 Last tetanus immunization: up to date. - Social history:: Smoking status: Patient denies any tobacco usage or history of. Screenin:21 [facility] ED Fall Risk Assessment (Adult) History of falling in the last 3 months, em6 including since admission No falls in past 3 months (0 pts) Confusion or Disorientation No (0 pts) Intoxicated or Sedated No (0 pts) Impaired Gait No (0 pts) Mobility Assist Device Used No (0 pt) Altered Elimination No (0 pt) Score/Fall Risk Level 0 - 2 = Low Risk Oriented to surroundings, Maintained a safe environment, Educated pt \T\ family on fall prevention, incl call for assistance when getting out of bed, Assessed \T\ reinforced patient's understanding of fall precautions, Provided non-skid footwear, Hourly rounding (assess needs \T\ fall precautionary measures) done, Used ambulatory aids as needed (educated on \T\ assisted with), Used gait belt as appropriate. Abuse screen: Denies threats or abuse. Nutritional screening: No deficits noted. Tuberculosis screening: No symptoms or risk factors identified. Assessment: 13:20 General: Appears in no apparent distress. Behavior is cooperative. Pain: Denies pain. em6 Neuro: Level of Consciousness is awake, alert, obeys commands, Oriented to person, place, time, situation. Cardiovascular: Patient's skin is warm and dry. Respiratory: Airway is patent Respiratory effort is even, unlabored, Respiratory pattern is regular, symmetrical. GI: Abdomen is non-distended, Bowel sounds present X 4 quads. Abd is soft and non tender X 4 quads. : patient reports bleeding Reports vaginal bleeding that is moderate flow. EENT: No signs and/or symptoms were reported regarding the EENT system. Derm: No signs and/or symptoms reported regarding the dermatologic system. Musculoskeletal: Circulation, motion, and sensation intact. Range of motion:. 14:20 Reassessment: Patient appears in no apparent distress at this time. No changes from em6 previously documented assessment. Patient and/or family updated on plan of care and expected duration. Pain level reassessed. Patient is alert, oriented x 3, equal unlabored respirations, skin warm/dry/pink. Vital Signs: 12:14 BP 150 / 99; Pulse 95; Resp 20; Temp 98.3; Pulse Ox 99% ; Weight 128.37 kg; Height 5 kb3 ft. 2 in. (157.48 cm); Pain 0/10; 13:22 BP 149 / 101; Pulse 102; Resp 18; Pulse Ox 99% on R/A; em6 15:00 BP 134 / 93; Pulse 93; Resp 20; Pulse Ox 100% on R/A; em6 12:14 Body Mass Index 51.76 (128.37 kg, 157.48 cm) kb3 ED Course: 11:50 Patient arrived in ED. as 11:54 [facility] snw 11:54 Star Mireles DO is Attending Physician. snw 12:11 Regla Gallardo, RN is Primary Nurse. kb3 12:18 Triage completed. kb3 12:18 Arm band placed on right wrist. kb3 12:53 Transvaginal Study Probe In Process Unspecified. EDMS 13:04 TSH Sent. em1 13:04 TS Sent. em1 13:04 Basic Metabolic Panel Sent. em1 13:04 CBC with Diff Sent. em1 13:04 Initial lab(s) drawn, by me, sent to lab. T\T\S collected, blood band applied to patient. em1 Inserted saline lock: 20 gauge in left antecubital area, using aseptic technique. Blood collected. 13:21 Placed in gown. Call light in reach. Side rails up X 1. Pulse ox on. NIBP on. Warm em6 blanket given. 15:14 No provider procedures requiring assistance completed. IV discontinued, intact, em6 bleeding controlled, No redness/swelling at site. Pressure dressing applied. Administered Medications: No medications were administered Medication: 15:14 VIS not applicable for this client. em6 Outcome: 15:01 Discharge ordered by . snw 15:14 Discharged to home via wheelchair. em6 15:14 Condition: stable 15:14 Discharge instructions given to patient, Instructed on discharge instructions, follow up and referral plans. Demonstrated understanding of instructions, follow-up care. 15:21 Patient left the ED. em6 Signatures: Dispatcher [employer] EDMS Jenn Monteiro FNP-C [employer] Lainey Strong Eric em1 Melvina Strong RN RN em6 Regla Gallardo, RN RN kb3 Corrections: (The following items were deleted from the chart) 13:11 13:04 ABO/RH TYPING+BB.LAB.BRZ drawn and sent. em1 EDMS 13:21 13:20 General: Appears in no apparent distress. Behavior is cooperative, em6 em6
--- NOTE | 2022-05-27 15:01 | EDPHYS ---
Physician Documentation [facility] Name: Bernadette Ugarte Age: 32 yrs Sex: Female : 1990 Arrival Date: 05/27/2022 Time: 11:50 Bed 25 Private MD: ED Physician Star Mireles HPI: 05/27 16:56 This 32 yrs old Black Female presents to ER via Ambulatory with complaints of Vaginal snw Bleeding, Weakness, Shortness Of Breath. 16:56 The patient has been recently seen by a physician: with similar presenting complaints, snw and apparently given a diagnosis of KAREN, given MVI and told to take with source of Vitamin C and motrin. 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 Last tetanus immunization: up to date. - Social history:: Smoking status: Patient denies any tobacco usage or history of. ROS: 16:55 Constitutional: Negative for fever, chills, and weight loss, + fatigue/malaise Eyes: snw Negative for injury, pain, redness, and discharge, ENT: Negative for injury, pain, and discharge, Neck: Negative for injury, pain, and swelling, Cardiovascular: Negative for chest pain, palpitations, and edema, Respiratory: Negative for cough, wheezing, and pleuritic chest pain, mild SOB Back: Negative for injury and pain, : Negative for injury, bleeding, discharge, and swelling, MS/Extremity: Negative for injury and deformity, Skin: Negative for injury, rash, and discoloration, Neuro: Negative for headache, weakness, numbness, tingling, and seizure. 16:55 Abdomen/GI: Positive for bloating. Exam: 16:53 Constitutional: This is a well developed, well nourished patient who is awake, alert, snw and in no acute distress. Head/Face: Normocephalic, atraumatic. Eyes: Pupils equal round and reactive to light, extra-ocular motions intact. Lids and lashes normal. Conjunctiva and sclera are non-icteric and not injected. Cornea within normal limits. Periorbital areas with no swelling, redness, or edema. ENT: Nares patent. No nasal discharge, no septal abnormalities noted. Tympanic membranes are normal and external auditory canals are clear. Oropharynx with no redness, swelling, or masses, exudates, or evidence of obstruction, uvula midline. Mucous membranes moist. Neck: Trachea midline, no thyromegaly or masses palpated, and no cervical lymphadenopathy. Supple, full range of motion without nuchal rigidity, or vertebral point tenderness. No Meningismus. Chest/axilla: Normal chest wall appearance and motion. Nontender with no deformity. No lesions are appreciated. Cardiovascular: Regular rate and rhythm with a normal S1 and S2. No gallops or rubs. Systolic murmur. Normal PMI, no JVD. No pulse deficits. Respiratory: Lungs have equal breath sounds bilaterally, clear to auscultation and percussion. No rales, rhonchi or wheezes noted. No increased work of breathing, no retractions or nasal flaring. Abdomen/GI: Soft, non-tender, with normal bowel sounds. No distension or tympany. No guarding or rebound. No evidence of tenderness throughout. Back: No spinal tenderness. No costovertebral tenderness. Full range of motion. Skin: Warm, dry with normal turgor. Normal color with no rashes, no lesions, and no evidence of cellulitis. MS/ Extremity: Pulses equal, no cyanosis. Neurovascular intact. Full, normal range of motion. Neuro: Awake and alert, GCS 15, oriented to person, place, time, and situation. Cranial nerves II-XII grossly intact. Motor strength 5/5 in all extremities. Sensory grossly intact. Cerebellar exam normal. Normal gait. Psych: Awake, alert, with orientation to person, place and time. Behavior, mood, and affect are within normal limits. Vital Signs: 12:14 BP 150 / 99; Pulse 95; Resp 20; Temp 98.3; Pulse Ox 99% ; Weight 128.37 kg; Height 5 kb3 ft. 2 in. (157.48 cm); Pain 0/10; 13:22 BP 149 / 101; Pulse 102; Resp 18; Pulse Ox 99% on R/A; em6 15:00 BP 134 / 93; Pulse 93; Resp 20; Pulse Ox 100% on R/A; em6 12:14 Body Mass Index 51.76 (128.37 kg, 157.48 cm) kb3 MDM: 13:13 Patient medically screened. snw 15:03 Differential diagnosis: dysmenorrhea, menometrorrhagia, menorrhea, uterine fibroids, snw urinary tract infection. 16:54 Data reviewed: vital signs, nurses notes. Data interpreted: Pulse oximetry: on room air snw is 100 %. Interpretation: normal. Counseling: I had a detailed discussion with the patient and/or guardian regarding: the historical points, exam findings, and any diagnostic results supporting the discharge/admit diagnosis, the presence of at least one elevated blood pressure reading (>120/80) during this emergency department visit, lab results, radiology results, the need for outpatient follow up, to return to the emergency department if symptoms worsen or persist or if there are any questions or concerns that arise at home. Response to treatment: the patient's symptoms have mildly improved after treatment. Special discussion: Based on the patient's Hx, exam, and Dx evaluation, there is no indication for emergent surgery or inpatient Tx. It is understood by the patient/guardian that if the Sx's persist or worsen they need to return immediately for re-evaluation. Based on the history and exam findings, there is no indication for further emergent testing or inpatient evaluation. I discussed with the patient/guardian the need to see the OB Gyne specialist for further evaluation of the symptoms. I discussed with the patient/guardian the need to see the primary care provider for further evaluation of the symptoms. 05/27 11:59 Order name: Basic Metabolic Panel; Complete Time: 13:57 snw 05/27 11:59 Order name: CBC with Diff; Complete Time: 13:29 snw 05/27 11:59 Order name: TSH; Complete Time: 13:57 snw 05/27 13:11 Order name: Urine Dipstick-Ancillary; Complete Time: 13:13 EDWA 05/27 11:59 Order name: IV Saline Lock; Complete Time: 13:04 snw 05/27 11:59 Order name: Labs collected and sent; Complete Time: 13:04 snw 05/27 12:53 Order name: Transvaginal Study Probe; Complete Time: 13:11 EDWA 05/27 13:13 Order name: Urine --Ancillary (enter results); Complete Time: 13:36 ss 05/27 13:32 Order name: LAB Add On eb 05/27 13:45 Order name: Iron; Complete Time: 13:57 EDMS 05/27 13:45 Order name: Ferritin; Complete Time: 13:57 EDMS 05/27 11:59 Order name: NPO; Complete Time: 13:16 snw 05/27 11:59 Order name: Urine Dipstick-Ancillary (obtain specimen); Complete Time: 13:12 snw 05/27 11:59 Order name: Urine Test (obtain specimen); Complete Time: 13:12 snw 05/27 13:32 Order name: Labs - recollect needed: recollect T\T\S / reband patient/ not filled enough; eb Complete Time: 13:54 05/27 14:10 Order name: Labs - recollect needed: recollect our recollect inside lab paged; Complete eb Time: 15:15 Administered Medications: No medications were administered Disposition: 16:13 Co-signature as Attending Physician, Star Mireles DO I was immediately available on-site ms3 in the Emergency Department for consultation in the care of the patient. Disposition Summary: 05/27/22 15:01 Discharge Ordered Location: Home snw Condition: Stable snw Diagnosis - Iron deficiency anemia, unspecified snw - Dysmenorrhea, unspecified snw - Other ovarian cysts snw Followup: snw - With: Emergency Department - When: As needed - Reason: Worsening of condition Followup: snw - With: Private Physician - When: 2 - 3 days - Reason: Recheck today's complaints, Continuance of care, Re-evaluation by your physician Discharge Instructions: - Discharge Summary Sheet snw - Iron Deficiency Anemia, Adult snw - Iron-Rich Diet snw - Dysmenorrhea snw Forms: - Medication Reconciliation Form snw - Thank You Letter snw - Antibiotic Education snw - Prescription Opioid Use snw Signatures: Dispatcher [employer] EDMS Jenn Monteiro FNP-C MANHOLE BUILDER-Csnw Gracia Stevens Marcus, DO DO ms3 Regla Gallardo, RN RN kb3 Corrections: (The following items were deleted from the chart) 12:53 12:01 Pelvis Complete+US.RAD.BRZ ordered. EDMS EDMS 13:11 12:01 ABO/RH TYPING+BB.LAB.BRZ ordered. EDMS EDMS
[2022-05-27 15:28] VITALS: TEMP 98.3
[2022-05-27 15:30] VITALS: BP 134/93; O2SAT 100
== END 2022-05-27 15:21 | disposition home or self-care (01) ==
LOC: ER 11:48
DX: D50.9 Iron deficiency anemia, unspecified (principal); N83.299 Other ovarian cyst, unspecified side
CPT/HCPCS: 36415; 76830; 80048; 81003; 81025; 82728; 83540; 84443; 85025; 99284

== ENCOUNTER 2024-12-28 20:31 | Emergency (ER) | payer OTHER, SELFPAY ==
--- OUTSIDE RECORDS SUMMARY | 2024-12-28 20:36 | XMS REPORT | Continuity of Care Document ---
Author Name Unknown Address [address] [facility]. [address] [place] [address] [facility] Address [address] [facility] [address]. [address] [place] [address] Care Team Providers Care Quality Control Expert Name Role Phone Ruel Hanna Primary Care Physician Medications Ordered Medication Name Filled Medication Name Start Date Stop Date Current Medication? Ordering Clinician Indication Dosage Frequency Signature (SIG) Comments Components Source amlodipine 10 mg tablet 11-08 00:00: 00 Yes 1mg Mauro Jordan lisinopril 10 mg tablet 11-08 00:00: 00 Yes 1mg Mauro Jordan hydrochloro thiazide 25 mg tablet 11-08 00:00: 00 Yes 1mg Mauro Jordan ferrous sulfate 325 mg (65 mg iron) tablet 10-29 00:00: 00 Yes 1(65 mg iron) Mauro Jordan Vitamin D3 25 mcg (1,000 unit) tablet 10-29 00:00: 00 Yes 1(1,000 unit) Mauro Jordan lisinopril 10 mg-hydrochl orothiazide 12.5 mg tablet 10-25 00:00: 00 Yes 1mg Mauro Jordan TAKE 1 TABLET BY MOUTH TWICE DAILY 05-31 00:00: 00 Yes Mauro Jordan Dose Unknown 05-23 00:00: 00 Yes Mauro Jordan TAKE 1 TABLET BY MOUTH TWICE DAILY 05-23 00:00: 00 No Dose Unknown 08 00:00: 00 Yes Mauro Jordan Dose Unknown 07-27 00:00: 00 No azithromyci n 500 mg tablet 11-10 00:00: 00 Yes 2mg Mauro Jordan metronidazo le 500 mg tablet 11-10 00:00: 00 Yes 1mg Mauro Jordan azithromyci n 500 mg tablet 11-10 00:00: 00 No 2mg metronidazo le 500 mg tablet 11-10 00:00: 00 No 1mg Flagyl 500 mg tablet 2019-05 00:00: 00 Yes 1mg Mauro Jordan azithromyci n 500 mg tablet 2019-05 00:00: 00 Yes 2mg Mauro Jordan Flagyl 500 mg tablet 2019-05 00:00: 00 No 1mg azithromyci n 500 mg tablet 2019-05 00:00: 00 No 2mg metronidazo le 500 mg tablet 11-08 00:00: 00 Yes 1mg Mauro Jordan Diflucan 150 mg tablet 11-08 00:00: 00 Yes 1mg Mauro Jordan metronidazo le 500 mg tablet 11-08 00:00: 00 No 1mg Diflucan 150 mg tablet 11-08 00:00: 00 No 1mg Flagyl 500 mg tablet 07-22 00:00: 00 Yes 1mg Mauro Jordan Flagyl 500 mg tablet 07-22 00:00: 00 No 1mg Vital Signs Vital Name Observation Time Observation Value Comments S maria eugenia BP Systolic 2024-12-02 15:56:00 123 mm[Hg] Jose Jordan BP Diastolic 2024-12-02 15:56:00 85 mm[Hg] Len Jordan Weight Measured 2024-12-02 15:56:00 282.40 pounds Mauro Jordan Height Measured 2024-12-02 15:56:00 63.00 inches Mauro Jordan Body Temperature 2024-12-02 15:56:00 98.20 degrees Mauro Jordan Heart Rate 2024-12-02 15:56:00 95.00 /min Makenna Jordan Respiratory Rate 2024-12-02 15:56:00 16.00 /min Mauro Jordan BP Systolic 2024-11-08 16:00:00 159 mm[Hg] Jose Jordan BP Diastolic 2024-11-08 16:00:00 104 mm[Hg] Len phen F Julian Weight Measured 2024-11-08 16:00:00 283.00 pounds Mauro F Julian Height Measured 2024-11-08 16:00:00 63.00 inches Mauro F Julian Body Temperature 2024-11-08 16:00:00 98.40 degrees Mauro F Julian Heart Rate 2024-11-08 16:00:00 88.00 /min Makenna en F Julian Respiratory Rate 2024-11-08 16:00:00 18.00 /min Mauro F Julian BP Systolic 2024-10-25 11:29:00 139 mm[Hg] Step hen F Julian BP Diastolic 2024-10-25 11:29:00 94 mm[Hg] Len phen F Julian Weight Measured 2024-10-25 11:29:00 286.60 pounds Mauro F Julian Height Measured 2024-10-25 11:29:00 63.00 inches Mauro F Julian Body Temperature 2024-10-25 11:29:00 97.30 degrees Mauro F Julian Heart Rate 2024-10-25 11:29:00 82.00 /min Makenna en F Julian Respiratory Rate 2024-10-25 11:29:00 16.00 /min Mauro F Julian BP Systolic 2024-08-12 14:17:00 165 mm[Hg] Step hen F Julian BP Diastolic 2024-08-12 14:17:00 102 mm[Hg] Len phen F Julian Weight Measured 2024-08-12 14:17:00 281.40 pounds Mauro F Julian Height Measured 2024-08-12 14:17:00 63.00 inches Mauro F Julian Body Temperature 2024-08-12 14:17:00 98.50 degrees Mauro F Julian Heart Rate 2024-08-12 14:17:00 91.00 /min Makenna en F Ujlian Respiratory Rate 2024-08-12 14:17:00 18.00 /min Mauro F Julian Heart Rate 2024-08-08 15:24:00 87.00 /min Makenna en F Julian Respiratory Rate 2024-08-08 15:24:00 18.00 /min Mauro F Julian BP Systolic 2024-08-08 15:24:00 143 mm[Hg] Step hen F Julian BP Diastolic 2024-08-08 15:24:00 95 mm[Hg] Len phen F Julian Weight Measured 2024-08-08 15:24:00 285.00 pounds Mauro F Julian Height Measured 2024-08-08 15:24:00 63.00 inches Mauro F Julian Body Temperature 2024-08-08 15:24:00 98.20 degrees Mauro F Julian BP Systolic 2022-12-21 08:55:00 157 mm[Hg] Step hen F Julian BP Diastolic 2022-12-21 08:55:00 90 mm[Hg] Len phen F Julian Weight Measured 2022-12-21 08:55:00 293.40 pounds Mauro F Julian Height Measured 2022-12-21 08:55:00 63.00 inches Mauro F Julian Body Temperature 2022-12-21 08:55:00 98.20 degrees Mauro F Julian Heart Rate 2022-12-21 08:55:00 89.00 /min Makenna en F Julian Respiratory Rate 2022-12-21 08:55:00 19.00 /min Mauro F Julian BP Systolic 2022-05-25 08:23:00 164 mm[Hg] Step hen F Julian BP Diastolic 2022-05-25 08:23:00 90 mm[Hg] Len phen F Julian Weight Measured 2022-05-25 08:23:00 282.60 pounds Mauro F Julian Height Measured 2022-05-25 08:23:00 63.00 inches Mauro F Julian Body Temperature 2022-05-25 08:23:00 97.10 degrees Mauro F Julian Heart Rate 2022-05-25 08:23:00 83.00 /min Makenna en F Julian Respiratory Rate 2022-05-25 08:23:00 25.00 /min Amuro F Julian BP Systolic 2021-07-27 14:36:00 136 mm[Hg] Step hen F Julian BP Diastolic 2021-07-27 14:36:00 85 mm[Hg] Len phen F Julian Weight Measured 2021-07-27 14:36:00 288.80 pounds Mauro F Julian Height Measured 2021-07-27 14:36:00 63.00 inches Mauro F Julian Body Temperature 2021-07-27 14:36:00 97.10 degrees Mauro F Julian Heart Rate 2021-07-27 14:36:00 81.00 /min Makenna en F Julian Respiratory Rate 2021-07-27 14:36:00 Mauro F Julian BP Systolic 2021-02-08 15:17:00 130 mm[Hg] Step hen F Julian BP Diastolic 2021-02-08 15:17:00 78 mm[Hg] Len phen F Julian Weight Measured 2021-02-08 15:17:00 272.40 pounds Mauro F Julian Height Measured 2021-02-08 15:17:00 63.00 inches Mauro F Julian Body Temperature 2021-02-08 15:17:00 97.90 degrees Mauro F Julian Heart Rate 2021-02-08 15:17:00 94.00 /min Makenna en F Julian Respiratory Rate 2021-02-08 15:17:00 Mauro F Julian BP Systolic 2020-11-10 14:22:00 143 mm[Hg] Step hen F Julian BP Diastolic 2020-11-10 14:22:00 96 mm[Hg] Len phen F Julian Weight Measured 2020-11-10 14:22:00 260.00 pounds Mauro F Julian Height Measured 2020-11-10 14:22:00 63.00 inches Mauro F Julian Body Temperature 2020-11-10 14:22:00 98.10 degrees Mauro F Julian Heart Rate 2020-11-10 14:22:00 83.00 /min Makenna en F Julian Respiratory Rate 2020-11-10 14:22:00 Mauro F Julian BP Systolic 2020-03-27 14:12:00 130 mm[Hg] Step hen F Julian BP Diastolic 2020-03-27 14:12:00 80 mm[Hg] Len phen F Julian Weight Measured 2020-03-27 14:12:00 270.20 pounds Mauro F Julian Height Measured 2020-03-27 14:12:00 63.00 inches Mauro F Julian Body Temperature 2020-03-27 14:12:00 98.20 degrees Mauro F Julian Heart Rate 2020-03-27 14:12:00 69.00 /min Makenna en F Julian Respiratory Rate 2020-03-27 14:12:00 16.00 /min Mauro F Julian BP Systolic 2018-11-08 16:56:00 127 mm[Hg] Step hen F Julian BP Diastolic 2018-11-08 16:56:00 76 mm[Hg] Len phen F Julian Weight Measured 2018-11-08 16:56:00 265.00 pounds Mauro F Julian Height Measured 2018-11-08 16:56:00 63.00 inches Mauro F Julian Body Temperature 2018-11-08 16:56:00 98.60 degrees Mauro F Julian Heart Rate 2018-11-08 16:56:00 94.00 /min Makenna en F Julian Respiratory Rate 2018-11-08 16:56:00 16.00 /min Mauro F Julian BP Systolic 2016-07-22 10:55:00 131 mm[Hg] Step hen F Julian BP Diastolic 2016-07-22 10:55:00 85 mm[Hg] Len phen F Julian Weight Measured 2016-07-22 10:55:00 232.00 pounds Mauro F Julian Height Measured 2016-07-22 10:55:00 63.00 inches Mauro F Julian Body Temperature 2016-07-22 10:55:00 98.40 degrees Mauro F Julian Heart Rate 2016-07-22 10:55:00 88.00 /min Makenna en F Julian Respiratory Rate 2016-07-22 10:55:00 Mauro F Julian Plan of Care Planned Activity Planned Date Details Comments Source Goal Plan of Care Note [code = 40070-4] Goal Plan of Care Note [code = 89205-3] Goal Plan of Care Note [code = 25635-1] Goal Plan of Care Note [code = 76181-7] Goal Plan of Care Note [code = 39544-7] Goal Plan of Care Note [code = 51645-7] Goal Plan of Care Note [code = 22143-5] Goal Plan of Care Note [code = 45957-3] Goal Plan of Care Note [code = 97250-4] Goal Plan of Care Note [code = 89954-9] Goal Plan of Care Note [code = 68634-1] Goal Plan of Care Note [code = 04975-4] Goal Plan of Care Note [code = 56605-8] Goal Plan of Care Note [code = 50738-3] Goal Plan of Care Note [code = 79927-1] Goal Plan of Care Note [code = 79468-9] Goal Plan of Care Note [code = 36113-7] Goal Plan of Care Note [code = 91471-8] Goal Plan of Care Note [code = 24112-7] Goal Plan of Care Note [code = 93760-7] Encounters Start Date/Time End Date/Time Encounter Type Admission Type Attending [facility] Care Department Encounter ID Source 2024-12-02 15:44:35 2024-12-02 15:44:35 Outpatient SFA SFA [id number] Mauro Jordan 2024-12-02 00:00:00 2024-12-02 00:00:00 Outpatient Visit SFA [id number] Mauro Jordan 2024-11-08 15:58:19 2024-11-08 15:58:19 Outpatient SFA SFA [id number] Mauro Jordan 2024-11-08 00:00:00 2024-11-08 00:00:00 Outpatient Visit SFA [id number] Mauro Jordan 2024-10-25 11:20:30 2024-10-25 11:20:30 Outpatient SFA SFA [id number] Mauro Jordan 2024-10-25 00:00:00 2024-10-25 00:00:00 Outpatient Visit SFA [id number] Mauro Jordan 2024-08-26 11:32:48 2024-08-26 11:32:48 Outpatient SFA SFA [id number] Mauro Bautista Julian 2024-08-12 14:06:23 2024-08-12 14:06:23 Outpatient SFA SFA [id number] Mauro Jordan 2024-08-12 00:00:00 2024-08-12 00:00:00 Outpatient Visit SFA [id number] Mauro Jordan 2024-08-08 15:15:07 2024-08-08 15:15:[address] [facility] [id number] Mauro Jordan 2024-08-08 00:00:00 2024-08-08 00:00:[address] [facility] [id number] Mauro Jordan 2022-12-21 08:49:51 2022-12-21 08:49:51 Outpatient [facility] [id number] Mauro Jordan 2022-05-25 08:20:46 2022-05-25 08:20:46 Outpatient [facility] [id number] Mauro Joradn 2022-05-25 00:00:00 2022-05-25 00:00:00 Outpatient Visit [id number] Results Test Description Test Time Test Comments Results Result Co mments Source Mauro JordanHIV 1/2 ANTIGEN/ANTIBODY,FOURTH GENERATION [id number] 00:00:00* Test Item Value Reference Range Interpretation Comme nts HIV AG/AB, 4TH GEN (test cod e = 78231-0) NON-REACTIVE Mauro Bautista AustinRPR (MONITOR) W/REFL [id number] 00:00:00* Test Item Value Reference Range Interpretation Comme nts RPR (MONITOR) W/REFL TITER ( test code = 51256-8) REACTIVE Mauro Bautista AustinRPR TITER [ADDED]2024-11-11 00:00:00* Test Item Value Reference Range Interpretation Comme nts RPR TITER (test code = 80617-2) 1:4 Mauro Bautista AustinTHYROID [id number] 00:00:00* Test Item Value Reference Range Interpretation Comme nts T3 UPTAKE (test code = 3050-2) 27 % T4 (THYROXINE), TOTAL (test code = 3026-2) 9.0 mcg/dL FREE T4 INDEX (T7) (test cod e = 75201-7) 2.4 Mauro Bautista AustinIRON, TIBC AND FERRITIN [id number] 00:00:00* Test Item Value Reference Range Interpretation Comme nts IRON, TOTAL (test code = 2498-4) 60 mcg/dL IRON BINDING CAPACITY (test code = 2500-7) 553 mcg/dL(calc) % SATURATION (test code = 2502-3) 11 %(calc) FERRITIN (test code = 2276-4) 7 ng/mL Mauro Holliday [ADDED]2024-10-31 00:00:00* Test Item Value Reference Range Interpretation Comme nts TSH (test code = 3016-3) 1.02 mIU/L Mauro JordanTHYROID [id number] 00:00:00* Test Item Value Reference Range Interpretation Comme nts T3 UPTAKE (test code = 3050-2) 27 % T4 (THYROXINE), TOTAL (test code = 3026-2) 9.0 mcg/dL FREE T4 INDEX (T7) (test cod e = 71334-9) 2.4 Mauro JordanIRON, TIBC AND FERRITIN [id number] 00:00:00* Test Item Value Reference Range Interpretation Comme nts IRON, TOTAL (test code = 2498-4) 60 mcg/dL IRON BINDING CAPACITY (test code = 2500-7) 553 mcg/dL(calc) % SATURATION (test code = 2502-3) 11 %(calc) FERRITIN (test code = 2276-4) 7 ng/mL Mauro Loja [ADDED]2024-10-31 00:00:00* Test Item Value Reference Range Interpretation Comme nts TSH (test code = 3016-3) 1.02 mIU/L Mauro JordanVITAMIN B1 (THIAMINE), BLOOD, LC/MS/[id number] 00:00:00* Test Item Value Reference Range Interpretation Comme nts VITAMIN B1 (THIAMINE), BLOOD , LC/MS/MS (test code = 84413-8) 82 nmol/L Mauro JordanVITAMIN B6, [id number] 00:00:00* Test Item Value Reference Range Interpretation Comme nts VITAMIN B6, PLASMA (test cod e = 82393-2) 3.9 ng/mL Mauro JordanVITAMIN B1 (THIAMINE), BLOOD, LC/MS/[id number] 00:00:00* Test Item Value Reference Range Interpretation Comme nts VITAMIN B1 (THIAMINE), BLOOD , LC/MS/MS (test code = 69227-1) 82 nmol/L Mauro JordanVITAMIN B6, [id number] 00:00:00* Test Item Value Reference Range Interpretation Comme nts VITAMIN B6, PLASMA (test cod e = 49785-1) 3.9 ng/mL Mauro JordanVITAMIN B1 (THIAMINE), BLOOD, LC/MS/[id number] 00:00:00* Test Item Value Reference Range Interpretation Comme nts VITAMIN B1 (THIAMINE), BLOOD , LC/MS/MS (test code = 35294-4) 82 nmol/L Mauro JordanVITAMIN B6, [id number] 00:00:00* Test Item Value Reference Range Interpretation Comme nts VITAMIN B6, PLASMA (test cod e = 80569-0) 3.9 ng/mL Mauro Bautista AustinVITAMIN [id number] 00:00:00* Test Item Value Reference Range Interpretation Comme nts VITAMIN B12 (test code = 2132-9) 447 pg/mL Mauro Bautista AustinVITAMIN A (RETINOL)2024-10-28 00:00:00* Test Item Value Reference Range Interpretation Comme nts VITAMIN A (RETINOL) (test co de = 2923-1) 40 mcg/dL Mauro Bautista AustinVITAMIN [id number] 00:00:00* Test Item Value Reference Range Interpretation Comme nts VITAMIN B12 (test code = 2132-9) 447 pg/mL Mauro Bautista AustinVITAMIN A (RETINOL)2024-10-28 00:00:00* Test Item Value Reference Range Interpretation Comme nts VITAMIN A (RETINOL) (test co de = 2923-1) 40 mcg/dL Mauro Bautista AustinVITAMIN [id number] 00:00:00* Test Item Value Reference Range Interpretation Comme nts VITAMIN B12 (test code = 2132-9) 447 pg/mL Mauro Bautista AustinVITAMIN A (RETINOL)2024-10-28 00:00:00* Test Item Value Reference Range Interpretation Comme nts VITAMIN A (RETINOL) (test co de = 2923-1) 40 mcg/dL Mauro JordanTHYROID [id number] 00:00:00* Test Item Value Reference Range Interpretation Comme nts T3 UPTAKE (test code = 3050-2) 27 % T4 (THYROXINE), TOTAL (test code = 3026-2) 9.0 mcg/dL FREE T4 INDEX (T7) (test cod e = 58441-7) 2.4 Mauro JordanIRON, TIBC AND FERRITIN [id number] 00:00:00* Test Item Value Reference Range Interpretation Comme nts IRON, TOTAL (test code = 2498-4) 60 mcg/dL IRON BINDING CAPACITY (test code = 2500-7) 553 mcg/dL(calc) % SATURATION (test code = 2502-3) 11 %(calc) FERRITIN (test code = 2276-4) 7 ng/mL Mauro JordanCBC (INCLUDES DIFF/PLT)2024-10-26 00:00:00* Test Item Value Reference Range Interpretation Comme nts WHITE BLOOD CELL COUNT (test code = 6690-2) 5.5 Thousand/uL RED BLOOD CELL COUNT (test code = 789-8) 4.21 Million/uL HEMOGLOBIN (test code = 718-7) 10.5 g/dL HEMATOCRIT (test code = 4544-3) 34.2 % MCV (test code = 787-2) 81.2 fL MCH (test code = 785-6) 24.9 pg MCHC (test code = 786-4) 30.7 g/dL RDW (test code = 788-0) 15.7 % PLATELET COUNT (test code = 777-3) 206 Thousand/uL MPV (test code = 776-5) 12.6 fL ABSOLUTE NEUTROPHILS (test code = 751-8) 3955 cells/uL ABSOLUTE BAND NEUTROPHILS (test code = 68266-2) DNR cells/uL ABSOLUTE METAMYELOCYTES (willy t code = 46206-6) DNR cells/uL ABSOLUTE MYELOCYTES (test code = 99567-3) DNR cells/uL ABSOLUTE PROMYELOCYTES (test code = 49111-4) DNR cells/uL ABSOLUTE LYMPHOCYTES (test code = 731-0) 1128 cells/uL ABSOLUTE MONOCYTES (test cod e = 742-7) 303 cells/uL ABSOLUTE EOSINOPHILS (test code = 711-2) 88 cells/uL ABSOLUTE BASOPHILS (test cod e = 704-7) 28 cells/uL ABSOLUTE BLASTS (test code = 74652-2) DNR cells/uL ABSOLUTE NUCLEATED RBC (test code = 89341-6) DNR cells/uL NEUTROPHILS (test code = 770-8) 71.9 % BAND NEUTROPHILS (test code = 764-1) DNR % METAMYELOCYTES (test code = 740-1) DNR % MYELOCYTES (test code = 749-2) DNR % PROMYELOCYTES (test code = 783-1) DNR % LYMPHOCYTES (test code = 736-9) 20.5 % REACTIVE LYMPHOCYTES (test code = 81372-9) DNR % MONOCYTES (test code = 5905-5) 5.5 % EOSINOPHILS (test code = 713-8) 1.6 % BASOPHILS (test code = 706-2) 0.5 % BLASTS (test code = 709-6) DNR % NUCLEATED RBC (test code = 16106-6) DNR /100WBC COMMENT(S) (test code = 8251-1) DNR Mauro JordanPROTHROMBIN [id number] 00:00:00* Test Item Value Reference Range Interpretation Comme nts INR (test code = 6301-6) 0.9 PT (test code = 5902-2) 10.3 sec Mauro JordanFOLATE, [id number] 00:00:00* Test Item Value Reference Range Interpretation Comme nts FOLATE, SERUM (test code = 2284-8) 8.8 ng/mL Mauro JordanCOMPREHENSIVE METABOLIC [id number] 00:00:00* Test Item Value Reference Range Interpretation Comme nts GLUCOSE (test code = 2345-7) 82 mg/dL UREA NITROGEN (BUN) (test code = 3094-0) 9 mg/dL CREATININE (test code = 2160-0) 0.77 mg/dL EGFR (test code = 28432-9) 104 mL/min/1.73m2 BUN/CREATININE RATIO (test code = 3097-3) SEE NOTE: (calc) SODIUM (test code = 2951-2) 135 mmol/L POTASSIUM (test code = 2823-3) 4.2 mmol/L CHLORIDE (test code = 2075-0) 102 mmol/L CARBON DIOXIDE (test code = 8-9) 24 mmol/L CALCIUM (test code = 25848-6) 9.5 mg/dL PROTEIN, TOTAL (test code = 2885-2) 7.5 g/dL ALBUMIN (test code = 1751-7) 4.4 g/dL GLOBULIN (test code = 95558-5) 3.1 g/dL(calc) ALBUMIN/GLOBULIN RATIO (test code = 1759-0) 1.4 (calc) BILIRUBIN, TOTAL (test code = 1975-2) 0.4 mg/dL ALKALINE PHOSPHATASE (test code = 6768-6) 72 U/L AST (test code = 1920-8) 21 U/L ALT (test code = 1742-6) 19 U/L Mauro JordanHEMOGLOBIN [id number] 00:00:00* Test Item Value Reference Range Interpretation Comme nts HEMOGLOBIN A1c (test code = 4548-4) 5.8 % Mauro JordanLIPID [id number] 00:00:00* Test Item Value Reference Range Interpretation Comme [facility] CHOLESTEROL, TOTAL (test cod e = 2093-3) 196 mg/dL HDL CHOLESTEROL (test code = 2085-9) 50 mg/dL TRIGLYCERIDES (test code = 2571-8) 167 mg/dL LDL-CHOLESTEROL (test code = 49598-3) 118 mg/dL(calc) CHOL/HDLC RATIO (test code = 9830-1) 3.9 (calc) NON HDL CHOLESTEROL (test code = 77963-1) 146 mg/dL(calc) Mauro JordanVITAMIN D,25-OH,TOTAL,[id number] 00:00:00* Test Item Value Reference Range Interpretation Comme [facility] VITAMIN D,25-OH,TOTAL,IA (te st code = 98554-9) 14 ng/mL Mauro JordanCBC (INCLUDES DIFF/PLT)2024-10-26 00:00:00* Test Item Value Reference Range Interpretation Comme nts WHITE BLOOD CELL COUNT (test code = 6690-2) 5.5 Thousand/uL RED BLOOD CELL COUNT (test code = 789-8) 4.21 Million/uL HEMOGLOBIN (test code = 718-7) 10.5 g/dL HEMATOCRIT (test code = 4544-3) 34.2 % MCV (test code = 787-2) 81.2 fL MCH (test code = 785-6) 24.9 pg MCHC (test code = 786-4) 30.7 g/dL RDW (test code = 788-0) 15.7 % PLATELET COUNT (test code = 777-3) 206 Thousand/uL MPV (test code = 776-5) 12.6 fL ABSOLUTE NEUTROPHILS (test code = 751-8) 3955 cells/uL ABSOLUTE BAND NEUTROPHILS (test code = 75875-8) DNR cells/uL ABSOLUTE METAMYELOCYTES (willy t code = 82135-7) DNR cells/uL ABSOLUTE MYELOCYTES (test code = 84616-1) DNR cells/uL ABSOLUTE PROMYELOCYTES (test code = 66226-7) DNR cells/uL ABSOLUTE LYMPHOCYTES (test code = 731-0) 1128 cells/uL ABSOLUTE MONOCYTES (test cod e = 742-7) 303 cells/uL ABSOLUTE EOSINOPHILS (test code = 711-2) 88 cells/uL ABSOLUTE BASOPHILS (test cod e = 704-7) 28 cells/uL ABSOLUTE BLASTS (test code = 00629-6) DNR cells/uL ABSOLUTE NUCLEATED RBC (test code = 43055-6) DNR cells/uL NEUTROPHILS (test code = 770-8) 71.9 % BAND NEUTROPHILS (test code = 764-1) DNR % METAMYELOCYTES (test code = 740-1) DNR % MYELOCYTES (test code = 749-2) DNR % PROMYELOCYTES (test code = 783-1) DNR % LYMPHOCYTES (test code = 736-9) 20.5 % REACTIVE LYMPHOCYTES (test code = 97739-5) DNR % MONOCYTES (test code = 5905-5) 5.5 % EOSINOPHILS (test code = 713-8) 1.6 % BASOPHILS (test code = 706-2) 0.5 % BLASTS (test code = 709-6) DNR % NUCLEATED RBC (test code = 10129-1) DNR /100WBC COMMENT(S) (test code = 8251-1) DNR Mauro JordanPROTHROMBIN [id number] 00:00:00* Test Item Value Reference Range Interpretation Comme nts INR (test code = 6301-6) 0.9 PT (test code = 5902-2) 10.3 sec Mauro JordanFOLATE, [id number] 00:00:00* Test Item Value Reference Range Interpretation Comme nts FOLATE, SERUM (test code = 2284-8) 8.8 ng/mL Mauro JordanCOMPREHENSIVE METABOLIC [id number] 00:00:00* Test Item Value Reference Range Interpretation Comme nts GLUCOSE (test code = 2345-7) 82 mg/dL UREA NITROGEN (BUN) (test code = 3094-0) 9 mg/dL CREATININE (test code = 2160-0) 0.77 mg/dL EGFR (test code = 86965-9) 104 mL/min/1.73m2 BUN/CREATININE RATIO (test code = 3097-3) SEE NOTE: (calc) SODIUM (test code = 2951-2) 135 mmol/L POTASSIUM (test code = 2823-3) 4.2 mmol/L CHLORIDE (test code = 2075-0) 102 mmol/L CARBON DIOXIDE (test code = 8-9) 24 mmol/L CALCIUM (test code = 19657-7) 9.5 mg/dL PROTEIN, TOTAL (test code = 2885-2) 7.5 g/dL ALBUMIN (test code = 1751-7) 4.4 g/dL GLOBULIN (test code = 58122-3) 3.1 g/dL(calc) ALBUMIN/GLOBULIN RATIO (test code = 1759-0) 1.4 (calc) BILIRUBIN, TOTAL (test code = 1975-2) 0.4 mg/dL ALKALINE PHOSPHATASE (test code = 6768-6) 72 U/L AST (test code = 1920-8) 21 U/L ALT (test code = 1742-6) 19 U/L Mauro JordanHEMOGLOBIN [id number] 00:00:00* Test Item Value Reference Range Interpretation Comme kenny HEMOGLOBIN A1c (test code = 4548-4) 5.8 % Mauro JordanLIPID [id number] 00:00:00* Test Item Value Reference Range Interpretation Comme nts CHOLESTEROL, TOTAL (test cod e = 2093-3) 196 mg/dL HDL CHOLESTEROL (test code = 2085-9) 50 mg/dL TRIGLYCERIDES (test code = 2571-8) 167 mg/dL LDL-CHOLESTEROL (test code = 31823-4) 118 mg/dL(calc) CHOL/HDLC RATIO (test code = 9830-1) 3.9 (calc) NON HDL CHOLESTEROL (test code = 88932-6) 146 mg/dL(calc) Mauro JordanVITAMIN D,25-OH,TOTAL,[id number] 00:00:00* Test Item Value Reference Range Interpretation Comme kenny VITAMIN D,25-OH,TOTAL,IA (te st code = 19707-7) 14 ng/mL Mauro JordanPROTHROMBIN [id number] 00:00:00* Test Item Value Reference Range Interpretation Comme kenny INR (test code = 6301-6) 0.9 PT (test code = 5902-2) 10.3 sec Mauro JordanFOLATE, [id number] 00:00:00* Test Item Value Reference Range Interpretation Comme kenny FOLATE, SERUM (test code = 2284-8) 8.8 ng/mL Mauro JordanCBC (INCLUDES DIFF/PLT)[id number] 00:00:00* Test Item Value Reference Range Interpretation Comme kenny WHITE BLOOD CELL COUNT (test code = 6690-2) 5.5 Thousand/uL RED BLOOD CELL COUNT (test code = 789-8) 4.21 Million/uL HEMOGLOBIN (test code = 718-7) 10.5 g/dL HEMATOCRIT (test code = 4544-3) 34.2 % MCV (test code = 787-2) 81.2 fL MCH (test code = 785-6) 24.9 pg MCHC (test code = 786-4) 30.7 g/dL RDW (test code = 788-0) 15.7 % PLATELET COUNT (test code = 777-3) 206 Thousand/uL MPV (test code = 776-5) 12.6 fL ABSOLUTE NEUTROPHILS (test code = 751-8) 3955 cells/uL ABSOLUTE BAND NEUTROPHILS (test code = 67624-2) DNR cells/uL ABSOLUTE METAMYELOCYTES (willy t code = 59793-7) DNR cells/uL ABSOLUTE MYELOCYTES (test code = 64765-6) DNR cells/uL ABSOLUTE PROMYELOCYTES (test code = 55530-0) DNR cells/uL ABSOLUTE LYMPHOCYTES (test code = 731-0) 1128 cells/uL ABSOLUTE MONOCYTES (test cod e = 742-7) 303 cells/uL ABSOLUTE EOSINOPHILS (test code = 711-2) 88 cells/uL ABSOLUTE BASOPHILS (test cod e = 704-7) 28 cells/uL ABSOLUTE BLASTS (test code = 56158-9) DNR cells/uL ABSOLUTE NUCLEATED RBC (test code = 66437-9) DNR cells/uL NEUTROPHILS (test code = 770-8) 71.9 % BAND NEUTROPHILS (test code = 764-1) DNR % METAMYELOCYTES (test code = 740-1) DNR % MYELOCYTES (test code = 749-2) DNR % PROMYELOCYTES (test code = 783-1) DNR % LYMPHOCYTES (test code = 736-9) 20.5 % REACTIVE LYMPHOCYTES (test code = 15497-4) DNR % MONOCYTES (test code = 5905-5) 5.5 % EOSINOPHILS (test code = 713-8) 1.6 % BASOPHILS (test code = 706-2) 0.5 % BLASTS (test code = 709-6) DNR % NUCLEATED RBC (test code = 57599-9) DNR /100WBC COMMENT(S) (test code = 8251-1) DNR Mauro F SaltilloCOMPREHENSIVE METABOLIC [id number] 00:00:00* Test Item Value Reference Range Interpretation Comme nts GLUCOSE (test code = 2345-7) 82 mg/dL UREA NITROGEN (BUN) (test code = 3094-0) 9 mg/dL CREATININE (test code = 2160-0) 0.77 mg/dL EGFR (test code = 36841-1) 104 mL/min/1.73m2 BUN/CREATININE RATIO (test code = 3097-3) SEE NOTE: (calc) SODIUM (test code = 2951-2) 135 mmol/L POTASSIUM (test code = 2823-3) 4.2 mmol/L CHLORIDE (test code = 2075-0) 102 mmol/L CARBON DIOXIDE (test code = 8-9) 24 mmol/L CALCIUM (test code = 39480-3) 9.5 mg/dL PROTEIN, TOTAL (test code = 2885-2) 7.5 g/dL ALBUMIN (test code = 1751-7) 4.4 g/dL GLOBULIN (test code = 31008-3) 3.1 g/dL(calc) ALBUMIN/GLOBULIN RATIO (test code = 1759-0) 1.4 (calc) BILIRUBIN, TOTAL (test code = 1975-2) 0.4 mg/dL ALKALINE PHOSPHATASE (test code = 6768-6) 72 U/L AST (test code = 1920-8) 21 U/L ALT (test code = 1742-6) 19 U/L Mauro JordanHEMOGLOBIN [id number] 00:00:00* Test Item Value Reference Range Interpretation Comme kenny HEMOGLOBIN A1c (test code = 4548-4) 5.8 % Mauro JordanLIPID [id number] 00:00:00* Test Item Value Reference Range Interpretation Comme nts CHOLESTEROL, TOTAL (test cod e = 2093-3) 196 mg/dL HDL CHOLESTEROL (test code = 2085-9) 50 mg/dL TRIGLYCERIDES (test code = 2571-8) 167 mg/dL LDL-CHOLESTEROL (test code = 97715-8) 118 mg/dL(calc) CHOL/HDLC RATIO (test code = 9830-1) 3.9 (calc) NON HDL CHOLESTEROL (test code = 10621-5) 146 mg/dL(calc) Mauro JordanVITAMIN D,25-OH,TOTAL,[id number] 00:00:00* Test Item Value Reference Range Interpretation Comme kenny VITAMIN D,25-OH,TOTAL,IA (te st code = 76279-0) 14 ng/mL Mauro JordanCHLAMYDIA/N. GONORRHOEAE RNA, [id number] 00:00:00* Test Item Value Reference Range Interpretation Comme eknny CHLAMYDIA TRACHOMATIS RNA, T MA, UROGENITAL (test code = 17607-5) NOT DETECTED NEISSERIA GONORRHOEAE RNA, T MA, UROGENITAL (test code = 42266-5) NOT DETECTED Mauro JordanHEPATITIS PANEL, [id number] 00:00:00* Test Item Value Reference Range Interpretation Comme nts HEPATITIS A AB, TOTAL (test code = 30197-7) REACTIVE HEPATITIS B SURFACE ANTIBODY QL (test code = 37009-0) NON-REACTIVE HEPATITIS B SURFACE ANTIGEN (test code = 5196-1) NON-REACTIVE CONFIRMATION (test code = 7905-3) DNR HEPATITIS B CORE AB TOTAL (t est code = 33057-6) NON-REACTIVE HEPATITIS C ANTIBODY (test c ode = 63565-3) NON-REACTIVE Mauro Bautista AustinHIV 1/2 ANTIGEN/ANTIBODY,FOURTH GENERATION [id number] 00:00:00* Test Item Value Reference Range Interpretation Comme nts HIV AG/AB, 4TH GEN (test cod e = 57733-1) NON-REACTIVE Mauro Bautista AustinRPR (MONITOR) W/REFL [id number] 00:00:00* Test Item Value Reference Range Interpretation Comme nts RPR (MONITOR) W/REFL TITER ( test code = 10276-9) REACTIVE Mauro Bautista AustinTRICHOMONAS VAGINALIS, QL TMA, PAP [id number] 00:00:00* Test Item Value Reference Range Interpretation Comme nts TRICHOMONAS VAGINALIS, QL TM A, PAP VIAL (test code = 54958-5) NOT DETECTED Mauro Bautista AustinRPR TITER [ADDED]2024-08-09 00:00:00* Test Item Value Reference Range Interpretation Comme nts RPR TITER (test code = 67892-5) 1:4 Mauro Bautista AustinCHLAMYDIA/N. GONORRHOEAE RNA, [id number] 00:00:00* Test Item Value Reference Range Interpretation Comme nts CHLAMYDIA TRACHOMATIS RNA, T MA, UROGENITAL (test code = 91619-5) NOT DETECTED NEISSERIA GONORRHOEAE RNA, T MA, UROGENITAL (test code = 57074-4) NOT DETECTED Mauro JordanHEPATITIS PANEL, [id number] 00:00:00* Test Item Value Reference Range Interpretation Comme nts HEPATITIS A AB, TOTAL (test code = 32978-8) REACTIVE HEPATITIS B SURFACE ANTIBODY QL (test code = 46599-0) NON-REACTIVE HEPATITIS B SURFACE ANTIGEN (test code = 5196-1) NON-REACTIVE CONFIRMATION (test code = 7905-3) DNR HEPATITIS B CORE AB TOTAL (t est code = 75936-1) NON-REACTIVE HEPATITIS C ANTIBODY (test c ode = 82217-9) NON-REACTIVE Mauro Bautista AustinHIV 1/2 ANTIGEN/ANTIBODY,FOURTH GENERATION [id number] 00:00:00* Test Item Value Reference Range Interpretation Comme nts HIV AG/AB, 4TH GEN (test cod e = 74262-2) NON-REACTIVE Mauro Bautista AustinRPR (MONITOR) W/REFL [id number] 00:00:00* Test Item Value Reference Range Interpretation Comme nts RPR (MONITOR) W/REFL TITER ( test code = 19441-8) REACTIVE Mauro Bautista AustinTRICHOMONAS VAGINALIS, QL TMA, PAP [id number] 00:00:00* Test Item Value Reference Range Interpretation Comme nts TRICHOMONAS VAGINALIS, QL TM A, PAP VIAL (test code = 28295-5) NOT DETECTED Mauro Bautista AustinRPR TITER [ADDED]2024-08-09 00:00:00* Test Item Value Reference Range Interpretation Comme nts RPR TITER (test code = 25579-0) 1:4 Mauro Bautista AustinCHLAMYDIA/N. GONORRHOEAE RNA, [id number] 00:00:00* Test Item Value Reference Range Interpretation Comme nts CHLAMYDIA TRACHOMATIS RNA, T MA, UROGENITAL (test code = 49639-0) NOT DETECTED NEISSERIA GONORRHOEAE RNA, T MA, UROGENITAL (test code = 53811-6) NOT DETECTED Mauro JordanHEPATITIS PANEL, [id number] 00:00:00* Test Item Value Reference Range Interpretation Comme nts HEPATITIS A AB, TOTAL (test code = 56863-8) REACTIVE HEPATITIS B SURFACE ANTIBODY QL (test code = 67221-5) NON-REACTIVE HEPATITIS B SURFACE ANTIGEN (test code = 5196-1) NON-REACTIVE CONFIRMATION (test code = 7905-3) DNR HEPATITIS B CORE AB TOTAL (t est code = 92401-7) NON-REACTIVE HEPATITIS C ANTIBODY (test c ode = 68112-9) NON-REACTIVE Mauro Bautista AustinHIV 1/2 ANTIGEN/ANTIBODY,FOURTH GENERATION [id number] 00:00:00* Test Item Value Reference Range Interpretation Comme nts HIV AG/AB, 4TH GEN (test cod e = 11882-4) NON-REACTIVE Mauro Bautista AustinRPR (MONITOR) W/REFL [id number] 00:00:00* Test Item Value Reference Range Interpretation Comme nts RPR (MONITOR) W/REFL TITER ( test code = 51209-7) REACTIVE Mauro F AustinTRICHOMONAS VAGINALIS, QL TMA, PAP [id number] 00:00:00* Test Item Value Reference Range Interpretation Comme nts TRICHOMONAS VAGINALIS, QL TM A, PAP VIAL (test code = 77377-8) NOT DETECTED Mauro Bautista AustinRPR TITER [ADDED]2024-08-09 00:00:00* Test Item Value Reference Range Interpretation Comme nts RPR TITER (test code = 52928-3) 1:4 Mauro Bautsita AustinCHLAMYDIA/N. GONORRHOEAE RNA, [id number] 00:00:00* Test Item Value Reference Range Interpretation Comme nts CHLAMYDIA TRACHOMATIS RNA, T MA, UROGENITAL (test code = 79086-3) NOT DETECTED NEISSERIA GONORRHOEAE RNA, T MA, UROGENITAL (test code = 04177-4) NOT DETECTED Mauro JordanHEPATITIS PANEL, [id number] 00:00:00* Test Item Value Reference Range Interpretation Comme nts HEPATITIS A AB, TOTAL (test code = 11735-6) REACTIVE HEPATITIS B SURFACE ANTIBODY QL (test code = 61597-8) NON-REACTIVE HEPATITIS B SURFACE ANTIGEN (test code = 5196-1) NON-REACTIVE CONFIRMATION (test code = 7905-3) DNR HEPATITIS B CORE AB TOTAL (t est code = 46006-1) NON-REACTIVE HEPATITIS C ANTIBODY (test c ode = 85622-0) NON-REACTIVE Mauro JordanHIV 1/2 ANTIGEN/ANTIBODY,FOURTH GENERATION [id number] 00:00:00* Test Item Value Reference Range Interpretation Comme nts HIV AG/AB, 4TH GEN (test cod e = 40774-3) NON-REACTIVE Mauro Bautista AustinRPR (MONITOR) W/REFL [id number] 00:00:00* Test Item Value Reference Range Interpretation Comme nts RPR (MONITOR) W/REFL TITER ( test code = 92384-5) REACTIVE Mauro Bautista AustinTRICHOMONAS VAGINALIS, QL TMA, PAP [id number] 00:00:00* Test Item Value Reference Range Interpretation Comme nts TRICHOMONAS VAGINALIS, QL TM A, PAP VIAL (test code = 03726-1) NOT DETECTED Mauro Bautista AustinRPR TITER [ADDED]2024-08-09 00:00:00* Test Item Value Reference Range Interpretation Comme nts RPR TITER (test code = 13406-4) 1:4 Mauro Holliday, THIRD [id number] 06:31:26* Test Item Value Reference Range Interpretation Comme [facility] TSH, THIRD GENERATION (test code = 2821) 2.190 UIU/ML 0.400-4.100 FSH + LH [id number] 06:31:26* Test Item Value Reference Range Interpretation Comme [facility] FOLLICLE STIM HORMONE (test code = 2700) 8.3 IU/L SEE BELOW EXPEC LARRY VALUES FOR FSH FOR FEMALES >17 YEARS FOLLICULAR 3.5-12.5 IU/L MID-CYCLE PEAK 4.7-21.5 IU/L LUTEAL PHASE 1.7-7.7 IU/L POSTMENOPAUSAL 25.8-134.8 IU/L LUTEINIZING HORMONE (test code = 2776) 12.7 IU/L SEE BELOW EXPEC LARRY VALUES FOR LH FOR FEMALES >17 YEARS MALES FEMALES >=18 YEARS 1.8-8.6 IU/L FOLLICULAR 2.4-12.6 IU/L MID-CYCLE PEAK 14.0-95.6 IU/L LUTEAL PHASE 1.0-11.4 IU/L POSTMENOPAUSAL 7.7-58.5 IU/L [id number] 06:31:26* Test Item Value Reference Range Interpretation Comme [facility] PROLACTIN (test code = 2800) 17.8 NG/ML 5.0-37.0 NOTE: Methodolog y is Ghassan Idania Electrochemiluminescence Immunoassay (ECLIA). Values obtained with different assays/manufacturers cannot be used interchangeably. Results should not be used as sole basis to establish the presence or absence of malignancy. HCG, [id number] 06:31:26* Test Item Value Reference Range Interpretation Comme [facility] HCG, QUANTITATIVE (test code = 2506) <5 MIU/ML SEE BELOW EXPEC LARRY VALUES FOR HCG GST.AGE UNITS RANGE GST. AGE UNITS RANGE3 WEEKS MIU/ML 6-71 10 WEEKS MIU/ML 46,509-186,9774 WEEKS MIU/ML 10-750 12 WEEKS MIU/ML 27,832-210,6125 WEEKS MIU/ML 217-7,138 14 WEEKS MIU/ML 13,950-62,5306 WEEKS MIU/ML 158-31,795 15 WEEKS MIU/ML 12,039-70,9717 WEEKS MIU/ML 3,697-163,563 16 WEEKS MIU/ML 9,040-56,4518 WEEKS MIU/ML 32,065-149,571 17 WEEKS MIU/ML 8,175-55,8689 WEEKS MIU/ML 63,803-151,410 18 WEEKS MIU/ML 8,099-58,176MALES and NON- FEMALES . . . . . . . . MIU/ML 6-8JJQJ-HPEXLTGJEM FEMALES . . . . . . . . . . . . MIU/ML <=7 UNLESS OTHERWISE INDICATED, ALL TESTING PERFORMED AT [facility] [address] [place] [address] MACHINE MOVER: BENNIE CALVIN M.D. [place] NUMBER [id number] [facility] [place]. [id number] TSH, THIRD [id number] 00:00:00* Test Item Value Reference Range Interpretation Comme nts TSH, THIRD GENERATION (test code = 2821) 2.190 UIU/ML Mauro JordanFSH + LH [id number] 00:00:00* Test Item Value Reference Range Interpretation Comme nts FOLLICLE STIM HORMONE (test code = 2700) 8.3 IU/L LUTEINIZING HORMONE (test co de = 2776) 12.7 IU/L Mauro [id number] 00:00:00* Test Item Value Reference Range Interpretation Comme nts PROLACTIN (test code = 2800) 17.8 NG/ML Mauro JordanHCG, [id number] 00:00:00* Test Item Value Reference Range Interpretation Comme nts HCG, QUANTITATIVE (test code = 2506) <5 MIU/ML Mauro JordanTSH, THIRD [id number] 00:00:00* Test Item Value Reference Range Interpretation Comme nts TSH, THIRD GENERATION (test code = 2821) 2.190 UIU/ML Mauro JordanFSH + LH [id number] 00:00:00* Test Item Value Reference Range Interpretation Comme nts FOLLICLE STIM HORMONE (test code = 2700) 8.3 IU/L LUTEINIZING HORMONE (test co de = 2776) 12.7 IU/L Mauro [id number] 00:00:00* Test Item Value Reference Range Interpretation Comme nts PROLACTIN (test code = 2800) 17.8 NG/ML Mauro JordanHCG, [id number] 00:00:00* Test Item Value Reference Range Interpretation Comme nts HCG, QUANTITATIVE (test code = 2506) <5 MIU/ML Mauro JordanTSH, THIRD [id number] 00:00:00* Test Item Value Reference Range Interpretation Comme nts TSH, THIRD GENERATION (test code = 2821) 2.190 UIU/ML Mauro JordanFSH + LH [id number] 00:00:00* Test Item Value Reference Range Interpretation Comme nts FOLLICLE STIM HORMONE (test code = 2700) 8.3 IU/L LUTEINIZING HORMONE (test co de = 2776) 12.7 IU/L Mauro Bautista [id number] 00:00:00* Test Item Value Reference Range Interpretation Comme nts PROLACTIN (test code = 2800) 17.8 NG/ML Mauro JordanHCG, [id number] 00:00:00* Test Item Value Reference Range Interpretation Comme nts HCG, QUANTITATIVE (test code = 2506) <5 MIU/ML Mauro LojaH, THIRD [id number] 00:00:00* Test Item Value Reference Range Interpretation Comme nts TSH, THIRD GENERATION (test code = 2821) 2.190 UIU/ML Mauro JordanFSH + LH [id number] 00:00:00* Test Item Value Reference Range Interpretation Comme nts FOLLICLE STIM HORMONE (test code = 2700) 8.3 IU/L LUTEINIZING HORMONE (test co de = 2776) 12.7 IU/L Mauro Bautista [id number] 00:00:00* Test Item Value Reference Range Interpretation Comme nts PROLACTIN (test code = 2800) 17.8 NG/ML Mauro JordanHCG, [id number] 00:00:00* Test Item Value Reference Range Interpretation Comme nts HCG, QUANTITATIVE (test code = 2506) <5 MIU/ML Mauro JordanTSH, THIRD [id number] 00:00:00* Test Item Value Reference Range Interpretation Comme nts TSH, THIRD GENERATION (test code = 2821) 2.190 UIU/ML Mauro JordanFSH + LH [id number] 00:00:00* Test Item Value Reference Range Interpretation Comme nts FOLLICLE STIM HORMONE (test code = 2700) 8.3 IU/L LUTEINIZING HORMONE (test co de = 8726) 12.7 IU/L Mauro [id number] 00:00:00* Test Item Value Reference Range Interpretation Comme nts PROLACTIN (test code = 2800) 17.8 NG/ML Mauro JordanHCG, [id number] 00:00:00* Test Item Value Reference Range Interpretation Comme nts HCG, QUANTITATIVE (test code = 2506) <5 MIU/ML Mauro JordanCBC W/AUTO DIFF WITH [id number] 03:58:34* Test Item Value Reference Range Interpretation Comme nts WBC (test code = 1001) 4.4 K/UL 3.5-11.0 RBC (test code = 1002) 3.38 M/UL 3.80-5.40 L HEMOGLOBIN (test code = 1003) 8.5 G/DL 11.5-15.5 L HEMATOCRIT (test code = 1004) 27.1 % 34.0-45.0 L MCV (test code = 1005) 80.2 fL 80.0-99.0 MCH (test code = 1006) 25.1 PG 25.0-33.0 MCHC (test code = 1007) 31.4 G/DL 31.0-36.0 RDW (test code = 1038) 15.4 % 11.5-15.0 H NEUTROPHILS (test code = 1008) 65.3 % LYMPHOCYTES (test code = 1010) 24.8 % MONOCYTES (test code = 1011) 7.8 % EOSINOPHILS (test code = 1012) 1.4 % BASOPHILS (test code = 1013) 0.5 % IMMATURE GRANULOCYTES (test code = 1036) 0.2 % NUCLEATED RBCS (test code = 1065) 0.0 /100 WBC'S See_Comment [Automated messa ge] The system which generated this result transmitted reference range: 0.0. The reference range was not used to interpret this result as normal/abnormal. PLATELET COUNT (test code = 1015) 217 K/UL 130-400 ABSOLUTE NEUTROPHILS (test code = 1066) 2.85 K/UL 1.50-7.50 ABSOLUTE LYMPHOCYTES (test code = 1067) 1.08 K/UL 1.00-4.00 ABSOLUTE MONOCYTES (test code = 1068) 0.34 K/UL 0.20-1.00 ABSOLUTE EOSINOPHILS (test code = 1040) 0.06 K/UL 0.00-0.50 ABSOLUTE BASOPHILS (test code = 1069) 0.02 K/UL 0.00-0.20 ABS IMMATURE GRANULOCYTES (test code = 1020) 0.01 K/UL 0.00-0.10 ABS NUCLEATED RBCS (test code = 34667) 0.00 K/UL 0.00-0.11 TSH, THIRD [id number] 03:50:35* Test Item Value Reference Range Interpretation Comme nts TSH, THIRD GENERATION (test code = 2821) 3.410 UIU/ML 0.400-4.100 UNLESS OTHERWISE INDICATED, [facility] [address] [place] [address] MACHINE MOVER: SUKHWINDER OLSON M.D. [place] NUMBER [id number] [facility] [place] [place]. [id number] 02:28:31* Test Item Value Reference Range Interpretation Comme nts PTT (test code = 1403) 25.5 SECONDS 25.2-40.0 PROTHROMBIN TIME (PT)2022-05-26 02:28:31* Test Item Value Reference Range Interpretation Comme nts PROTHROMBIN TIME (PT) (test code = 1402) 12.9 SECONDS 12.5-14.7 INR (test code = 23250) 0.9 SEE BELOW CURRENT RECOMMENDATIONS ARE FOR AN INR OF 2.0-3.0 FOR ALL PATIENTS ON VITAMIN K ANTAGONISTS, EXCEPT THOSE WITH PROSTHETIC HEART VALVES, FOR WHOM INR OF 2.5-3.5 IS RECOMMENDED. CBC W/AUTO [id number] 00:00:00* Test Item Value Reference Range Interpretation Comme nts WBC (test code = 1001) 4.4 K/UL RBC (test code = 1002) 3.38 M/UL HEMOGLOBIN (test code = 1003) 8.5 G/DL HEMATOCRIT (test code = 1004) 27.1 % MCV (test code = 1005) 80.2 fL MCH (test code = 1006) 25.1 PG MCHC (test code = 1007) 31.4 G/DL RDW (test code = 1038) 15.4 % NEUTROPHILS (test code = 1008) 65.3 % LYMPHOCYTES (test code = 1010) 24.8 % MONOCYTES (test code = 1011) 7.8 % EOSINOPHILS (test code = 1012) 1.4 % BASOPHILS (test code = 1013) 0.5 % IMMATURE GRANULOCYTES (test code = 1036) 0.2 % NUCLEATED RBCS (test code = 1065) 0.0 /100WBC'S PLATELET COUNT (test code = 1015) 217 K/UL ABSOLUTE NEUTROPHILS (test c ode = 1066) 2.85 K/UL ABSOLUTE LYMPHOCYTES (test c ode = 1067) 1.08 K/UL ABSOLUTE MONOCYTES (test cod e = 1068) 0.34 K/UL ABSOLUTE EOSINOPHILS (test c ode = 1040) 0.06 K/UL ABSOLUTE BASOPHILS (test cod e = 1069) 0.02 K/UL ABS IMMATURE GRANULOCYTES (t est code = 1020) 0.01 K/UL ABS NUCLEATED RBCS (test cod e = 58691) 0.00 K/UL Mauro Bautista [id number] 00:00:00* Test Item Value Reference Range Interpretation Comme nts PTT (test code = 1403) 25.5 SECONDS Mauro Bautista JulianPROTHROMBIN TIME (PT)2022-05-26 00:00:00* Test Item Value Reference Range Interpretation Comme nts PROTHROMBIN TIME (PT) (test code = 1402) 12.9 SECONDS INR (test code = 27957) 0.9 Mauro Bautista JulianTSH, THIRD [id number] 00:00:00* Test Item Value Reference Range Interpretation Comme nts TSH, THIRD GENERATION (test code = 2821) 3.410 UIU/ML Mauro Bautista JulianCBC W/AUTO [id number] 00:00:00* Test Item Value Reference Range Interpretation Comme nts WBC (test code = 1001) 4.4 K/UL RBC (test code = 1002) 3.38 M/UL HEMOGLOBIN (test code = 1003) 8.5 G/DL HEMATOCRIT (test code = 1004) 27.1 % MCV (test code = 1005) 80.2 fL MCH (test code = 1006) 25.1 PG MCHC (test code = 1007) 31.4 G/DL RDW (test code = 1038) 15.4 % NEUTROPHILS (test code = 1008) 65.3 % LYMPHOCYTES (test code = 1010) 24.8 % MONOCYTES (test code = 1011) 7.8 % EOSINOPHILS (test code = 1012) 1.4 % BASOPHILS (test code = 1013) 0.5 % IMMATURE GRANULOCYTES (test code = 1036) 0.2 % NUCLEATED RBCS (test code = 1065) 0.0 /100WBC'S PLATELET COUNT (test code = 1015) 217 K/UL ABSOLUTE NEUTROPHILS (test c ode = 1066) 2.85 K/UL ABSOLUTE LYMPHOCYTES (test c ode = 1067) 1.08 K/UL ABSOLUTE MONOCYTES (test cod e = 1068) 0.34 K/UL ABSOLUTE EOSINOPHILS (test c ode = 1040) 0.06 K/UL ABSOLUTE BASOPHILS (test cod e = 1069) 0.02 K/UL ABS IMMATURE GRANULOCYTES (t est code = 1020) 0.01 K/UL ABS NUCLEATED RBCS (test cod e = 84290) 0.00 K/UL Mauro Bautista [id number] 00:00:00* Test Item Value Reference Range Interpretation Comme nts PTT (test code = 1403) 25.5 SECONDS Mauro Bautista JulianPROTHROMBIN TIME (PT)2022-05-26 00:00:00* Test Item Value Reference Range Interpretation Comme nts PROTHROMBIN TIME (PT) (test code = 1402) 12.9 SECONDS INR (test code = 05254) 0.9 Mauro Bautista JulianTSH, THIRD [id number] 00:00:00* Test Item Value Reference Range Interpretation Comme nts TSH, THIRD GENERATION (test code = 2821) 3.410 UIU/ML Mauro Bautista JulianCBC W/AUTO [id number] 00:00:00* Test Item Value Reference Range Interpretation Comme nts WBC (test code = 1001) 4.4 K/UL RBC (test code = 1002) 3.38 M/UL HEMOGLOBIN (test code = 1003) 8.5 G/DL HEMATOCRIT (test code = 1004) 27.1 % MCV (test code = 1005) 80.2 fL MCH (test code = 1006) 25.1 PG MCHC (test code = 1007) 31.4 G/DL RDW (test code = 1038) 15.4 % NEUTROPHILS (test code = 1008) 65.3 % LYMPHOCYTES (test code = 1010) 24.8 % MONOCYTES (test code = 1011) 7.8 % EOSINOPHILS (test code = 1012) 1.4 % BASOPHILS (test code = 1013) 0.5 % IMMATURE GRANULOCYTES (test code = 1036) 0.2 % NUCLEATED RBCS (test code = 1065) 0.0 /100WBC'S PLATELET COUNT (test code = 1015) 217 K/UL ABSOLUTE NEUTROPHILS (test c ode = 1066) 2.85 K/UL ABSOLUTE LYMPHOCYTES (test c ode = 1067) 1.08 K/UL ABSOLUTE MONOCYTES (test cod e = 1068) 0.34 K/UL ABSOLUTE EOSINOPHILS (test c ode = 1040) 0.06 K/UL ABSOLUTE BASOPHILS (test cod e = 1069) 0.02 K/UL ABS IMMATURE GRANULOCYTES (t est code = 1020) 0.01 K/UL ABS NUCLEATED RBCS (test cod e = 82299) 0.00 K/UL Mauro Bautista [id number] 00:00:00* Test Item Value Reference Range Interpretation Comme nts PTT (test code = 1403) 25.5 SECONDS Mauro F JulianPROTHROMBIN TIME (PT)2022-05-26 00:00:00* Test Item Value Reference Range Interpretation Comme nts PROTHROMBIN TIME (PT) (test code = 1402) 12.9 SECONDS INR (test code = 50555) 0.9 Mauro Bautista JulianTSH, THIRD [id number] 00:00:00* Test Item Value Reference Range Interpretation Comme nts TSH, THIRD GENERATION (test code = 2821) 3.410 UIU/ML Mauro Bautista JulianCBC W/AUTO [id number] 00:00:00* Test Item Value Reference Range Interpretation Comme nts WBC (test code = 1001) 4.4 K/UL RBC (test code = 1002) 3.38 M/UL HEMOGLOBIN (test code = 1003) 8.5 G/DL HEMATOCRIT (test code = 1004) 27.1 % MCV (test code = 1005) 80.2 fL MCH (test code = 1006) 25.1 PG MCHC (test code = 1007) 31.4 G/DL RDW (test code = 1038) 15.4 % NEUTROPHILS (test code = 1008) 65.3 % LYMPHOCYTES (test code = 1010) 24.8 % MONOCYTES (test code = 1011) 7.8 % EOSINOPHILS (test code = 1012) 1.4 % BASOPHILS (test code = 1013) 0.5 % IMMATURE GRANULOCYTES (test code = 1036) 0.2 % NUCLEATED RBCS (test code = 1065) 0.0 /100WBC'S PLATELET COUNT (test code = 1015) 217 K/UL ABSOLUTE NEUTROPHILS (test c ode = 1066) 2.85 K/UL ABSOLUTE LYMPHOCYTES (test c ode = 1067) 1.08 K/UL ABSOLUTE MONOCYTES (test cod e = 1068) 0.34 K/UL ABSOLUTE EOSINOPHILS (test c ode = 1040) 0.06 K/UL ABSOLUTE BASOPHILS (test cod e = 1069) 0.02 K/UL ABS IMMATURE GRANULOCYTES (t est code = 1020) 0.01 K/UL ABS NUCLEATED RBCS (test cod e = 90025) 0.00 K/UL Mauro [id number] 00:00:00* Test Item Value Reference Range Interpretation Comme nts PTT (test code = 1403) 25.5 SECONDS Mauro F JulianPROTHROMBIN TIME (PT)2022-05-26 00:00:00* Test Item Value Reference Range Interpretation Comme nts PROTHROMBIN TIME (PT) (test code = 1402) 12.9 SECONDS INR (test code = 45786) 0.9 Mauro Bautista JulianTSH, THIRD [id number] 00:00:00* Test Item Value Reference Range Interpretation Comme nts TSH, THIRD GENERATION (test code = 2821) 3.410 UIU/ML Mauro Bautista JulianCBC W/AUTO [id number] 00:00:00* Test Item Value Reference Range Interpretation Comme nts WBC (test code = 1001) 4.4 K/UL RBC (test code = 1002) 3.38 M/UL HEMOGLOBIN (test code = 1003) 8.5 G/DL HEMATOCRIT (test code = 1004) 27.1 % MCV (test code = 1005) 80.2 fL MCH (test code = 1006) 25.1 PG MCHC (test code = 1007) 31.4 G/DL RDW (test code = 1038) 15.4 % NEUTROPHILS (test code = 1008) 65.3 % LYMPHOCYTES (test code = 1010) 24.8 % MONOCYTES (test code = 1011) 7.8 % EOSINOPHILS (test code = 1012) 1.4 % BASOPHILS (test code = 1013) 0.5 % IMMATURE GRANULOCYTES (test code = 1036) 0.2 % NUCLEATED RBCS (test code = 1065) 0.0 /100WBC'S PLATELET COUNT (test code = 1015) 217 K/UL ABSOLUTE NEUTROPHILS (test c ode = 1066) 2.85 K/UL ABSOLUTE LYMPHOCYTES (test c ode = 1067) 1.08 K/UL ABSOLUTE MONOCYTES (test cod e = 1068) 0.34 K/UL ABSOLUTE EOSINOPHILS (test c ode = 1040) 0.06 K/UL ABSOLUTE BASOPHILS (test cod e = 1069) 0.02 K/UL ABS IMMATURE GRANULOCYTES (t est code = 1020) 0.01 K/UL ABS NUCLEATED RBCS (test cod e = 60687) 0.00 K/UL Mauro [id number] 00:00:00* Test Item Value Reference Range Interpretation Comme nts PTT (test code = 1403) 25.5 SECONDS Mauro Michele JulianPROTHROMBIN TIME (PT)2022-05-26 00:00:00* Test Item Value Reference Range Interpretation Comme nts PROTHROMBIN TIME (PT) (test code = 1402) 12.9 SECONDS INR (test code = 23318) 0.9 Mauro Bautista JulianTSH, THIRD [id number] 00:00:00* Test Item Value Reference Range Interpretation Comme nts TSH, THIRD GENERATION (test code = 2821) 3.410 UIU/ML Mauro JordanGC AND CHLAMYDIA, AMPLIFIED, [id number] 00:00:00* Test Item Value Reference Range Interpretation Comme nts GONORRHEA, NAAT (test code = 74053) NEGATIVE CHLAMYDIA, NAAT (test code = 00348) NEGATIVE Mauro F AustinGC AND CHLAMYDIA, AMPLIFIED, [id number] 00:00:00* Test Item Value Reference Range Interpretation Comme nts GONORRHEA, NAAT (test code = 17399) NEGATIVE CHLAMYDIA, NAAT (test code = 99560) NEGATIVE Mauro F AustinGC AND CHLAMYDIA, AMPLIFIED, [id number] 00:00:00* Test Item Value Reference Range Interpretation Comme nts GONORRHEA, NAAT (test code = 76256) NEGATIVE CHLAMYDIA, NAAT (test code = 27755) NEGATIVE Mauro F AustinGC AND CHLAMYDIA, AMPLIFIED, [id number] 00:00:00* Test Item Value Reference Range Interpretation Comme nts GONORRHEA, NAAT (test code = 44143) NEGATIVE CHLAMYDIA, NAAT (test code = 93715) NEGATIVE Mauro F AustinGC AND CHLAMYDIA, AMPLIFIED, [id number] 00:00:00* Test Item Value Reference Range Interpretation Comme nts GONORRHEA, NAAT (test code = 35197) NEGATIVE CHLAMYDIA, NAAT (test code = 78985) NEGATIVE Mauro F AustinGC AND CHLAMYDIA, AMPLIFIED, [id number] 00:00:00* Test Item Value Reference Range Interpretation Comme nts GONORRHEA, NAAT (test code = 25833) NEGATIVE CHLAMYDIA, NAAT (test code = 26474) NEGATIVE VAGINAL PATHOGENS DNA [id number] 00:00:00* Test Item Value Reference Range Interpretation Comme nts JAQUELIN SPECIES (test code = 57825) NEGATIVE G. VAGINALIS (test code = 64381) POSITIVE T. VAGINALIS (test code = 83319) POSITIVE Mauro F AustinCHLAMYDIA, AMPLIFIED, [id number] 00:00:00* Test Item Value Reference Range Interpretation Comme nts CHLAMYDIA, NAAT (test code = 18065) POSITIVE Mauro F AustinGC, AMPLIFIED, [id number] 00:00:00* Test Item Value Reference Range Interpretation Comme nts GONORRHEA, NAAT (test code = 30427) NEGATIVE Mauro F AustinVAGINAL PATHOGENS DNA [id number] 00:00:00* Test Item Value Reference Range Interpretation Comme nts JAQUELIN SPECIES (test code = 70892) NEGATIVE G. VAGINALIS (test code = 34661) POSITIVE T. VAGINALIS (test code = ) POSITIVE Mauro Bautista AustinCHLAMYDIA, AMPLIFIED, [id number] 00:00:00* Test Item Value Reference Range Interpretation Comme nts CHLAMYDIA, NAAT (test code = 24780) POSITIVE Mauro Bautista AustinGC, AMPLIFIED, [id number] 00:00:00* Test Item Value Reference Range Interpretation Comme nts GONORRHEA, NAAT (test code = 15504) NEGATIVE Mauro Bautista AustinVAGINAL PATHOGENS DNA [id number] 00:00:00* Test Item Value Reference Range Interpretation Comme nts JAQUELIN SPECIES (test code = 63893) NEGATIVE G. VAGINALIS (test code = 05365) POSITIVE T. VAGINALIS (test code = ) POSITIVE Mauro Bautista AustinCHLAMYDIA, AMPLIFIED, [id number] 00:00:00* Test Item Value Reference Range Interpretation Comme nts CHLAMYDIA, NAAT (test code = 42987) POSITIVE Mauro Bautista AustinGC, AMPLIFIED, [id number] 00:00:00* Test Item Value Reference Range Interpretation Comme nts GONORRHEA, NAAT (test code = 84005) NEGATIVE Mauro Bautista AustinVAGINAL PATHOGENS DNA [id number] 00:00:00* Test Item Value Reference Range Interpretation Comme nts JAQUELIN SPECIES (test code = ) NEGATIVE G. VAGINALIS (test code = 05283) POSITIVE T. VAGINALIS (test code = 82357) POSITIVE Mauro Bautista AustinCHLAMYDIA, AMPLIFIED, [id number] 00:00:00* Test Item Value Reference Range Interpretation Comme nts CHLAMYDIA, NAAT (test code = 87759) POSITIVE Mauro Bautista AustinGC, AMPLIFIED, [id number] 00:00:00* Test Item Value Reference Range Interpretation Comme nts GONORRHEA, NAAT (test code = 06231) NEGATIVE Mauro Bautista AustinVAGINAL PATHOGENS DNA [id number] 00:00:00* Test Item Value Reference Range Interpretation Comme nts JAQUELIN SPECIES (test code = 44136) NEGATIVE G. VAGINALIS (test code = 32929) POSITIVE T. VAGINALIS (test code = 59798) POSITIVE Mauro Bautista AustinCHLAMYDIA, AMPLIFIED, [id number] 00:00:00* Test Item Value Reference Range Interpretation Comme nts CHLAMYDIA, NAAT (test code = 88715) POSITIVE Mauro JordanGC, AMPLIFIED, [id number] 00:00:00* Test Item Value Reference Range Interpretation Comme nts GONORRHEA, NAAT (test code = 16656) NEGATIVE Mauro JordanVAGINAL PATHOGENS DNA [id number] 00:00:00* Test Item Value Reference Range Interpretation Comme nts JAQUELIN SPECIES (test code = 17727) NEGATIVE G. VAGINALIS (test code = 34501) POSITIVE T. VAGINALIS (test code = 93018) POSITIVE CHLAMYDIA, AMPLIFIED, [id number] 00:00:00* Test Item Value Reference Range Interpretation Comme nts CHLAMYDIA, NAAT (test code = 08172) POSITIVE GC, AMPLIFIED, [id number] 00:00:00* Test Item Value Reference Range Interpretation Comme nts GONORRHEA, NAAT (test code = 31576) NEGATIVE PAP TEST, THINPREP, [id number] 00:00:00* Test Item Value Reference Range Interpretation Comme nts SOURCE: (test code = 8001) Cervical/Endocervical SLIDES: (test code = 8011) 1 LMP: (test code = 8021) 11/02/2018 SPECIMEN ADEQUACY: (test code = 11318) (NOTE) INTERPRETATION: (test code = 15300) NILM/NO EPITH. ABNORMALITY;SEE BELOW TRACK HOE OPERATOR: (test code = 8101) ELANA Perera(ASCP) LOCATION: (test code = 98798) (NOTE) CPT: (test code = 8140) (NOTE) Mauro Bautista AustinHPV HIGH RISK WITH GENOTYPE, [id number] 00:00:00* Test Item Value Reference Range Interpretation Comme nts HPV HIGH RISK INTERP (test c ode = 80273) NEGATIVE HPV 16 (test code = 46393) NEGATIVE HPV 18 (test code = 15179) NEGATIVE HPV, HR, OTHER GENOTYPES (te st code = 11241) NEGATIVE Mauro Bautista AustinPAP TEST, THINPREP, [id number] 00:00:00* Test Item Value Reference Range Interpretation Comme nts SOURCE: (test code = 8001) Cervical/Endocervical SLIDES: (test code = 8011) 1 LMP: (test code = 8021) 11/02/2018 SPECIMEN ADEQUACY: (test code = 01250) (NOTE) INTERPRETATION: (test code = 69785) NILM/NO EPITH. ABNORMALITY;SEE BELOW TRACK HOE OPERATOR: (test code = 8101) ELANA Perera(ASCP) LOCATION: (test code = 07962) (NOTE) CPT: (test code = 8140) (NOTE) Mauro Bautista AustinHPV HIGH RISK WITH GENOTYPE, [id number] 00:00:00* Test Item Value Reference Range Interpretation Comme nts HPV HIGH RISK INTERP (test c ode = 28124) NEGATIVE HPV 16 (test code = 97468) NEGATIVE HPV 18 (test code = 95990) NEGATIVE HPV, HR, OTHER GENOTYPES (te st code = 79882) NEGATIVE Mauro Bautista AustinPAP TEST, THINPREP, [id number] 00:00:00* Test Item Value Reference Range Interpretation Comme nts SOURCE: (test code = 8001) Cervical/Endocervical SLIDES: (test code = 8011) 1 LMP: (test code = 8021) 11/02/2018 SPECIMEN ADEQUACY: (test code = 21569) (NOTE) INTERPRETATION: (test code = 31622) NILM/NO EPITH. ABNORMALITY;SEE BELOW TRACK HOE OPERATOR: (test code = 8101) ELANA Perera(ASCP) LOCATION: (test code = 07176) (NOTE) CPT: (test code = 8140) (NOTE) Mauro Bautista AustinHPV HIGH RISK WITH GENOTYPE, [id number] 00:00:00* Test Item Value Reference Range Interpretation Comme nts HPV HIGH RISK INTERP (test c ode = 58471) NEGATIVE HPV 16 (test code = 35048) NEGATIVE HPV 18 (test code = 90864) NEGATIVE HPV, HR, OTHER GENOTYPES (te st code = 40537) NEGATIVE Mauro F AustinPAP TEST, THINPREP, [id number] 00:00:00* Test Item Value Reference Range Interpretation Comme nts SOURCE: (test code = 8001) Cervical/Endocervical SLIDES: (test code = 8011) 1 LMP: (test code = 8021) 11/02/2018 SPECIMEN ADEQUACY: (test code = 57991) (NOTE) INTERPRETATION: (test code = 00210) NILM/NO EPITH. ABNORMALITY;SEE BELOW TRACK HOE OPERATOR: (test code = 8101) ELANA Perera(ASCP) LOCATION: (test code = 39767) (NOTE) CPT: (test code = 8140) (NOTE) Mauro Bautista AustinHPV HIGH RISK WITH GENOTYPE, [id number] 00:00:00* Test Item Value Reference Range Interpretation Comme nts HPV HIGH RISK INTERP (test c ode = 58337) NEGATIVE HPV 16 (test code = 94532) NEGATIVE HPV 18 (test code = 04689) NEGATIVE HPV, HR, OTHER GENOTYPES (te st code = 36400) NEGATIVE Mauro JordanPAP TEST, THINPREP, [id number] 00:00:00* Test Item Value Reference Range Interpretation Comme nts SOURCE: (test code = 8001) Cervical/Endocervical SLIDES: (test code = 8011) 1 LMP: (test code = 8021) 11/02/2018 SPECIMEN ADEQUACY: (test code = 47904) (NOTE) INTERPRETATION: (test code = 59549) NILM/NO EPITH. ABNORMALITY;SEE BELOW TRACK HOE OPERATOR: (test code = 8101) ELANA Perera(ASCP) LOCATION: (test code = 45607) (NOTE) CPT: (test code = 8140) (NOTE) Mauro JordanHPV HIGH RISK WITH GENOTYPE, [id number] 00:00:00* Test Item Value Reference Range Interpretation Comme nts HPV HIGH RISK INTERP (test c ode = 61090) NEGATIVE HPV 16 (test code = 49174) NEGATIVE HPV 18 (test code = 86847) NEGATIVE HPV, HR, OTHER GENOTYPES (te st code = 05593) NEGATIVE Mauro JordanPAP TEST, THINPREP, [id number] 00:00:00* Test Item Value Reference Range Interpretation Comme nts SOURCE: (test code = 8001) Cervical/Endocervical SLIDES: (test code = 8011) 1 LMP: (test code = 8021) 11/02/2018 SPECIMEN ADEQUACY: (test code = 35471) (NOTE) INTERPRETATION: (test code = 00826) NILM/NO EPITH. ABNORMALITY;SEE BELOW TRACK HOE OPERATOR: (test code = 8101) ELANA Perera(ASCP) LOCATION: (test code = 98612) (NOTE) CPT: (test code = 8140) (NOTE) HPV HIGH RISK WITH GENOTYPE, [id number] 00:00:00* Test Item Value Reference Range Interpretation Comme nts HPV HIGH RISK INTERP (test c ode = 98550) NEGATIVE HPV 16 (test code = 96943) NEGATIVE HPV 18 (test code = 77490) NEGATIVE HPV, HR, OTHER GENOTYPES (te st code = 13387) NEGATIVE VAGINAL PATHOGENS DNA [id number] 00:00:00* Test Item Value Reference Range Interpretation Comme nts JAQUELIN SPECIES (test code = 33810) NEGATIVE G. VAGINALIS (test code = 90021) POSITIVE T. VAGINALIS (test code = 62328) NEGATIVE Mauro F AustinVAGINAL PATHOGENS DNA [id number] 00:00:00* Test Item Value Reference Range Interpretation Comme nts JAQUELIN SPECIES (test code = 32702) NEGATIVE G. VAGINALIS (test code = 15701) POSITIVE T. VAGINALIS (test code = 93921) NEGATIVE Mauro F AustinVAGINAL PATHOGENS DNA [id number] 00:00:00* Test Item Value Reference Range Interpretation Comme nts JAQUELIN SPECIES (test code = 38423) NEGATIVE G. VAGINALIS (test code = 06039) POSITIVE T. VAGINALIS (test code = 69940) NEGATIVE Mauro F AustinVAGINAL PATHOGENS DNA [id number] 00:00:00* Test Item Value Reference Range Interpretation Comme nts JAQUELIN SPECIES (test code = 18581) NEGATIVE G. VAGINALIS (test code = 57340) POSITIVE T. VAGINALIS (test code = 36171) NEGATIVE Mauro F AustinVAGINAL PATHOGENS DNA [id number] 00:00:00* Test Item Value Reference Range Interpretation Comme nts JAQUELIN SPECIES (test code = 07850) NEGATIVE G. VAGINALIS (test code = 32873) POSITIVE T. VAGINALIS (test code = 11380) NEGATIVE Mauro F AustinVAGINAL PATHOGENS DNA [id number] 00:00:00* Test Item Value Reference Range Interpretation Comme nts JAQUELIN SPECIES (test code = 52765) NEGATIVE G. VAGINALIS (test code = 56986) POSITIVE T. VAGINALIS (test code = 20046) NEGATIVE VAGINAL PATHOGENS DNA [id number] 00:00:00* Test Item Value Reference Range Interpretation Comme nts JAQUELIN SPECIES (test code = ) NEGATIVE G. VAGINALIS (test code = 08275) POSITIVE T. VAGINALIS (test code = 21151) NEGATIVE Mauro JordanACUTE HEPATITIS [id number] 00:00:00* Test Item Value Reference Range Interpretation Comme nts HEPATITIS A IgM (test code = 94294) NON-REACTIVE HEPATITIS B CORE IgM (test c ode = 4644) NON-REACTIVE HEPATITIS B SURF AG (test co de = 2739) NON-REACTIVE HEPATITIS C ANTIBODY (test c ode = 4675) NON-REACTIVE INTERPRETATION HEPATITIS A: (test code = 2552) (NOTE) INTERPRETATION HEPATITIS B: (test code = 34901) (NOTE) INTERPRETATION HEPATITIS C: (test code = 06293) (NOTE) Mauro JordanHIV AB/AG COMBO RFLX [id number] 00:00:00* Test Item Value Reference Range Interpretation Comme nts HIV 1/2 4TH GEN, RFLX CONF ( test code = 3514) NON-REACTIVE Mauro Bautista [id number] 00:00:00* Test Item Value Reference Range Interpretation Comme nts RPR RESULT (test code = 3501) NON-REACTIVE RPR TITER (test code = 3500) NOT INDIC. TITER Mauro JordanRUBELLA ANTIBODY [id number] 00:00:00* Test Item Value Reference Range Interpretation Comme nts RUBELLA ANTIBODY SCREEN (willy t code = 4600) 42 IU/ML RUBELLA IgG INTERP (test cod e = 13458) REACTIVE Mauro JordanVAGINAL PATHOGENS DNA [id number] 00:00:00* Test Item Value Reference Range Interpretation Comme nts JAQUELIN SPECIES (test code = ) NEGATIVE G. VAGINALIS (test code = 53379) POSITIVE T. VAGINALIS (test code = 21423) NEGATIVE Mauro JordanACUTE HEPATITIS [id number] 00:00:00* Test Item Value Reference Range Interpretation Comme nts HEPATITIS A IgM (test code = 89341) NON-REACTIVE HEPATITIS B CORE IgM (test c ode = 4644) NON-REACTIVE HEPATITIS B SURF AG (test co de = 2739) NON-REACTIVE HEPATITIS C ANTIBODY (test c ode = 4675) NON-REACTIVE INTERPRETATION HEPATITIS A: (test code = 2552) (NOTE) INTERPRETATION HEPATITIS B: (test code = 70878) (NOTE) INTERPRETATION HEPATITIS C: (test code = 69475) (NOTE) Mauro JordanHIV AB/AG COMBO RFLX [id number] 00:00:00* Test Item Value Reference Range Interpretation Comme nts HIV 1/2 4TH GEN, RFLX CONF ( test code = 3514) NON-REACTIVE Mauro [id number] 00:00:00* Test Item Value Reference Range Interpretation Comme nts RPR RESULT (test code = 3501) NON-REACTIVE RPR TITER (test code = 3500) NOT INDIC. TITER Mauro JordanRUBELLA ANTIBODY [id number] 00:00:00* Test Item Value Reference Range Interpretation Comme nts RUBELLA ANTIBODY SCREEN (willy t code = 4600) 42 IU/ML RUBELLA IgG INTERP (test cod e = 22008) REACTIVE Mauro JordanVAGINAL PATHOGENS DNA [id number] 00:00:00* Test Item Value Reference Range Interpretation Comme nts JAQUELIN SPECIES (test code = 27009) NEGATIVE G. VAGINALIS (test code = 45875) POSITIVE T. VAGINALIS (test code = 39024) NEGATIVE Mauro JordanACUTE HEPATITIS [id number] 00:00:00* Test Item Value Reference Range Interpretation Comme nts HEPATITIS A IgM (test code = 84806) NON-REACTIVE HEPATITIS B CORE IgM (test c ode = 4644) NON-REACTIVE HEPATITIS B SURF AG (test co de = 2739) NON-REACTIVE HEPATITIS C ANTIBODY (test c ode = 4675) NON-REACTIVE INTERPRETATION HEPATITIS A: (test code = 2552) (NOTE) INTERPRETATION HEPATITIS B: (test code = 99807) (NOTE) INTERPRETATION HEPATITIS C: (test code = 01802) (NOTE) Mauro JordanHIV AB/AG COMBO RFLX [id number] 00:00:00* Test Item Value Reference Range Interpretation Comme nts HIV 1/2 4TH GEN, RFLX CONF ( test code = 3514) NON-REACTIVE Mauro Bautista [id number] 00:00:00* Test Item Value Reference Range Interpretation Comme nts RPR RESULT (test code = 3501) NON-REACTIVE RPR TITER (test code = 3500) NOT INDIC. TITER Mauro JordanRUBELLA ANTIBODY [id number] 00:00:00* Test Item Value Reference Range Interpretation Comme nts RUBELLA ANTIBODY SCREEN (willy t code = 4600) 42 IU/ML RUBELLA IgG INTERP (test cod e = 67423) REACTIVE Mauro JordanVAGINAL PATHOGENS DNA [id number] 00:00:00* Test Item Value Reference Range Interpretation Comme nts JAQUELIN SPECIES (test code = 69244) NEGATIVE G. VAGINALIS (test code = 31876) POSITIVE T. VAGINALIS (test code = 88270) NEGATIVE Mauro JordanACUTE HEPATITIS [id number] 00:00:00* Test Item Value Reference Range Interpretation Comme nts HEPATITIS A IgM (test code = 58042) NON-REACTIVE HEPATITIS B CORE IgM (test c ode = 4644) NON-REACTIVE HEPATITIS B SURF AG (test co de = 2739) NON-REACTIVE HEPATITIS C ANTIBODY (test c ode = 4675) NON-REACTIVE INTERPRETATION HEPATITIS A: (test code = 2552) (NOTE) INTERPRETATION HEPATITIS B: (test code = 32594) (NOTE) INTERPRETATION HEPATITIS C: (test code = 00124) (NOTE) Mauro JordanHIV AB/AG COMBO RFLX [id number] 00:00:00* Test Item Value Reference Range Interpretation Comme nts HIV 1/2 4TH GEN, RFLX CONF ( test code = 3514) NON-REACTIVE Mauro [id number] 00:00:00* Test Item Value Reference Range Interpretation Comme nts RPR RESULT (test code = 3501) NON-REACTIVE RPR TITER (test code = 3500) NOT INDIC. TITER Mauro JordanRUBELLA ANTIBODY [id number] 00:00:00* Test Item Value Reference Range Interpretation Comme nts RUBELLA ANTIBODY SCREEN (willy t code = 4600) 42 IU/ML RUBELLA IgG INTERP (test cod e = 82232) REACTIVE Mauro Bautista AustinVAGINAL PATHOGENS DNA [id number] 00:00:00* Test Item Value Reference Range Interpretation Comme nts JAQUELIN SPECIES (test code = ) NEGATIVE G. VAGINALIS (test code = 68514) POSITIVE T. VAGINALIS (test code = 93503) NEGATIVE Mauro JordanACUTE HEPATITIS [id number] 00:00:00* Test Item Value Reference Range Interpretation Comme nts HEPATITIS A IgM (test code = 02712) NON-REACTIVE HEPATITIS B CORE IgM (test c ode = 4644) NON-REACTIVE HEPATITIS B SURF AG (test co de = 2739) NON-REACTIVE HEPATITIS C ANTIBODY (test c ode = 4675) NON-REACTIVE INTERPRETATION HEPATITIS A: (test code = 2552) (NOTE) INTERPRETATION HEPATITIS B: (test code = 86768) (NOTE) INTERPRETATION HEPATITIS C: (test code = 31816) (NOTE) Mauro JordanHIV AB/AG COMBO RFLX [id number] 00:00:00* Test Item Value Reference Range Interpretation Comme nts HIV 1/2 4TH GEN, RFLX CONF ( test code = 3514) NON-REACTIVE Mauro [id number] 00:00:00* Test Item Value Reference Range Interpretation Comme nts RPR RESULT (test code = 3501) NON-REACTIVE RPR TITER (test code = 3500) NOT INDIC. TITER Mauro JordanRUBELLA ANTIBODY [id number] 00:00:00* Test Item Value Reference Range Interpretation Comme kenny RUBELLA ANTIBODY SCREEN (willy t code = 4600) 42 IU/ML RUBELLA IgG INTERP (test cod e = 92676) REACTIVE Mauro JordanVAGINAL PATHOGENS DNA [id number] 00:00:00* Test Item Value Reference Range Interpretation Comme nts JAQUELIN SPECIES (test code = ) NEGATIVE G. VAGINALIS (test code = 57304) POSITIVE T. VAGINALIS (test code = 20549) NEGATIVE ACUTE HEPATITIS [id number] 00:00:00* Test Item Value Reference Range Interpretation Comme nts HEPATITIS A IgM (test code = 74272) NON-REACTIVE HEPATITIS B CORE IgM (test c ode = 4644) NON-REACTIVE HEPATITIS B SURF AG (test co de = 2739) NON-REACTIVE HEPATITIS C ANTIBODY (test c ode = 4675) NON-REACTIVE INTERPRETATION HEPATITIS A: (test code = 2552) (NOTE) INTERPRETATION HEPATITIS B: (test code = 62576) (NOTE) INTERPRETATION HEPATITIS C: (test code = 23643) (NOTE) HIV AB/AG COMBO RFLX [id number] 00:00:00* Test Item Value Reference Range Interpretation Comme nts HIV 1/2 4TH GEN, RFLX CONF ( test code = 3514) NON-REACTIVE [id number] 00:00:00* Test Item Value Reference Range Interpretation Comme nts RPR RESULT (test code = 3501) NON-REACTIVE RPR TITER (test code = 3500) NOT INDIC. TITER RUBELLA ANTIBODY [id number] 00:00:00* Test Item Value Reference Range Interpretation Comme nts RUBELLA ANTIBODY SCREEN (willy t code = 4600) 42 IU/ML RUBELLA IgG INTERP (test cod e = 62114) REACTIVE Notes Date/Time Note Provider Source [facility]2025-06-20 00:00:00 [facility]2025-06-06 00:00:00 [facility]2025-03-24 00:00:00 [facility]2025-03-20 00:00:00 [facility]
[2024-12-28] MEDS ORDERED: hydroCHLOROthiazide 25 MG TAB ONE (20:54)
[2024-12-28] MEDS ORDERED: AMLODIPINE 5 MG TAB ONE (20:54)
[2024-12-28] MEDS ORDERED: NA CHLORIDE 0.9% 0 ML ONE (20:55)
--- NOTE | 2024-12-28 21:10 | ER ---
Nurse's Notes [facility] Name: Bernadette Ugarte Age: 34 yrs Sex: Female : 1990 Arrival Date: 12/28/2024 Time: 20:31 Bed 4 Private MD: Diagnosis: Dizziness;Essential (primary) hypertension; Presentation: 12/28 20:39 Chief complaint: EMS states: Dizziness, hypertension and anxiety. Patient reports she cp4 is 5 months . Coronavirus screen: Client denies travel out of the [place] in the last 14 days. At this time, the client does not indicate any symptoms associated with coronavirus-19. Ebola Screen: Patient negative for fever greater than or equal to 101.5 degrees Fahrenheit, and additional compatible Ebola Virus Disease symptoms Patient denies exposure to infectious person. Patient denies travel to an Ebola-affected area in the 21 days before illness onset. No symptoms or risks identified at this time. Initial Sepsis Screen: Does the patient meet any 2 criteria? HR > 90 bpm. No. Patient's initial sepsis screen is negative. Does the patient have a suspected source of infection? No. Patient's initial sepsis screen is negative. Risk Assessment: Do you want to hurt yourself or someone else? Patient reports no desire to harm self or others. Onset of symptoms was December 28, 2024. 20:39 Method Of Arrival: EMS: [facility] 4 20:39 Acuity: COLIN 3 cp4 Triage Assessment: 20:40 General: Appears in no apparent distress. uncomfortable, Behavior is calm, cooperative, cp4 appropriate for age. Pain: Denies pain. EENT: No signs and/or symptoms were reported regarding the EENT system. Neuro: Level of Consciousness is awake, alert, obeys commands, Oriented to person, place, time, situation. Cardiovascular: Patient's skin is warm and dry. Respiratory: Airway is patent Respiratory effort is even, unlabored. GI: No signs and/or symptoms were reported involving the gastrointestinal system. : No signs and/or symptoms were reported regarding the genitourinary system. Derm: No signs and/or symptoms reported regarding the dermatologic system. Musculoskeletal: No signs and/or symptoms reported regarding the musculoskeletal system. ORGAN FIXER: 20:40 Verified cp4 20:40 7, Full Term 4, 2, Living 4, LMP 06/15/2024, Verified, EDC cp4 03/22/2025, Gestational age from LMP: 28 weeks 1 day Historical: - Allergies: 20:40 No Known Allergies; cp4 - PMHx: 20:40 Hypertensive disorder; cp4 - PSHx: 20:40 tubal ligation; cp4 - Immunization history:: Adult Immunizations up to date. - Infectious Disease History:: Denies. - Social history:: Smoking status: Patient denies any tobacco usage or history of. Screenin:46 [facility] ED Fall Risk Assessment (Adult) History of falling in the last 3 months, cp4 including since admission No falls in past 3 months (0 pts) Confusion or Disorientation No (0 pts) Intoxicated or Sedated No (0 pts) Impaired Gait No (0 pts) Mobility Assist Device Used No (0 pt) Altered Elimination No (0 pt) Score/Fall Risk Level 0 - 2 = Low Risk Oriented to surroundings, Maintained a safe environment, Assessed \T\ reinforced patient's understanding of fall precautions, Hourly rounding (assess needs \T\ fall precautionary measures) done. Abuse screen: Denies threats or abuse. Denies injuries from another. Nutritional screening: No deficits noted. Tuberculosis screening: No symptoms or risk factors identified. Never had TB. Assessment: 20:46 Reassessment: No changes from previously documented assessment. cp4 21:21 Reassessment: Patient stated she needed to use the restroom and ran out the front door. cp4 Charge nurse and provider notified. Vital Signs: 20:39 BP 144 / 78; Pulse 109; Resp 18; Temp 98.1; Pulse Ox 99% ; Weight 129.27 kg; Height 5 cp4 ft. 2 in. ; Pain 0/10; 20:39 Body Mass Index 52.13 (129.27 kg, 157.48 cm) cp4 20:39 Pain Scale: Adult cp4 ED Course: 20:37 Patient arrived in ED. ms3 20:37 Star Mireles DO is Attending Physician. ms3 20:39 Elinor Weiss is Primary Nurse. cp4 20:40 Triage completed. cp4 20:44 Arm band placed on right wrist. Patient placed in an exam room, on a stretcher. cp4 20:46 Bed in low position. Call light in reach. Side rails up X2. cp4 20:46 No provider procedures requiring assistance completed. cp4 21:22 Provided Education on: hypertension. cp4 21:22 Patient did not have IV access during this emergency room visit. cp4 Administered Medications: 21:20 Not Given (Patient Eloped): ns 0.9% 1000 ml IV at 1 bolus Per protocol; to be given as cp4 a bolus over 60 minutes 21:20 Not Given (Patient Eloped): [id number] mg PO once cp4 21:20 Not Given (Patient Eloped): amlodipine5 mg PO once cp4 Medication: 20:46 VIS not applicable for this client. cp4 Outcome: 21:09 Discharge ordered by . ms3 21:22 Discharged to home ambulatory, Patient left prior to medications or discharge. cp4 21:22 Condition: stable 21:22 Discharge instructions given to Patient left prior to discharge instructions. 21:31 Patient left the ED. cp4 Signatures: Star Mireles DO DO ms3 Elinor Weiss cp4
--- NOTE | 2024-12-28 21:10 | EDPHYS ---
Physician Documentation [facility] Name: Bernadette Ugarte Age: 34 yrs Sex: Female : 1990 Arrival Date: 12/28/2024 Time: 20:31 Bed 4 Private MD: ED Physician Star Mireles HPI: 12/28 20:38 This 34 yrs old Black Female presents to ER via Unassigned with unknown complaint. [facility] 20:38 34-year-old female with past medical history of hypertension and anxiety presents to [facility] the emergency department via [facility] after they were called to the [facility] to check patient's blood glucose level. EMS notes patient's blood glucose level was 154. Patient noted to them she was having dizziness. EMS states patient's symptoms improved and route to the emergency department. Patient denies taking her blood pressure medications, lisinopril/for drug chlorothiazide, and amlodipine this morning. Patient states she had 1 episode of emesis prior to leaving the [facility]. Patient states her symptoms are improved since arrival.. [employer]: 20:40 Verified cp4 20:40 7, Full Term 4, 2, Living 4, LMP 06/15/2024, Verified, EDC cp4 03/22/2025, Gestational age from LMP: 28 weeks 1 day Historical: - Allergies: 20:40 No Known Allergies; cp4 - PMHx: 20:40 Hypertensive disorder; cp4 - PSHx: 20:40 tubal ligation; cp4 - Immunization history:: Adult Immunizations up to date. - Infectious Disease History:: Denies. - Social history:: Smoking status: Patient denies any tobacco usage or history of. ROS: 20:38 Constitutional: Negative for fever, and chills. Cardiovascular: Negative for chest ms3 pain, and palpitations. Respiratory: Negative for shortness of breath, cough, wheezing, and pleuritic chest pain, 20:38 Skin: Negative for injury, rash, and discoloration, 20:38 Abdomen/GI: Positive for vomiting, 20:38 Neuro: Positive for dizziness, Exam: 20:38 Constitutional: This is a well developed, well nourished patient who is awake, alert, ms3 and in no acute distress. Cardiovascular: Regular rate and rhythm with a normal S1 and S2. No gallops, murmurs, or rubs. Normal PMI, no JVD. No pulse deficits. Respiratory: Lungs have equal breath sounds bilaterally, clear to auscultation and percussion. No rales, rhonchi or wheezes noted. No increased work of breathing, no retractions or nasal flaring. Abdomen/GI: Soft, non-tender, with normal bowel sounds. No distension or tympany. No guarding or rebound. No evidence of tenderness throughout. Neuro: Awake and alert, GCS 15, oriented to person, place, time, and situation. Cranial nerves II-XII grossly intact. Motor strength 5/5 in all extremities. Sensory grossly intact. Cerebellar exam normal. Normal gait. 20:43 ECG was reviewed by the Attending Physician. ms3 Vital Signs: 20:39 BP 144 / 78; Pulse 109; Resp 18; Temp 98.1; Pulse Ox 99% ; Weight 129.27 kg; Height 5 cp4 ft. 2 in. ; Pain 0/10; 20:39 Body Mass Index 52.13 (129.27 kg, 157.48 cm) cp4 20:39 Pain Scale: Adult cp4 MDM: 20:37 Medical Screening Exam initiated ms3 20:38 Differential diagnosis: cardiac arrhythmia, idiopathic dizziness, , vertigo. ms3 20:43 ED course: Discussed taking Lisinopril in with patient and advised patient to ms3 discuss this with her OB. HCTZ and Amlodipine ordered in the ED.. 21:06 Data reviewed: vital signs, nurses notes, EKG, and as a result, I will patient left ms3 prior to having labs drawn. Independent interpretation of the following test(s) in the Emergency Department EKG: See my EKG interpretation above. ED course: Patient asked to go the restroom and after coming out of the restroom patient left the emergency department. Patient did not have labs drawn, IV was not placed, she did not receive blood pressure medications. Attempted to call patient and number given is a nonworking number. Patient is free to return at any time.. 12/28 20:40 Order name: Cardiac monitoring; Complete Time: 20:44 ms3 12/28 20:40 Order name: EKG - Nurse/Tech; Complete Time: 20:44 ms3 12/28 20:40 Order name: O2 Per Protocol; Complete Time: 20:44 ms3 12/28 20:40 Order name: O2 Sat Monitoring; Complete Time: 20:44 ms3 EC:43 Rate is 102 beats/min. Rhythm is regular. QRS Jamieson is Normal. NV interval is normal. ms3 QRS interval is normal. Clinical impression: Sinus tachycardia. Interpreted by me. Reviewed by me. Administered Medications: 21:20 Not Given (Patient Eloped): ns 0.9% 1000 ml IV at 1 bolus Per protocol; to be given as cp4 a bolus over 60 minutes 21:20 Not Given (Patient Eloped): [id number] mg PO once cp4 21:20 Not Given (Patient Eloped): [id number] mg PO once cp4 Disposition Summary: 12/28/24 21:09 Discharge Ordered Notes: Location: Home ms3 Condition: Undetermined ms3 Diagnosis - Dizziness ms3 - Essential (primary) hypertension ms3 - ms3 Followup: ms3 - With: Private Physician - When: 1 - 2 days - Reason: Recheck today's complaints Discharge Instructions: - Discharge Summary Sheet ms3 - Hypertension, Adult ms3 - Dizziness, [id number] ms3 Forms: - Medication Reconciliation Form ms3 - Antibiotic Education ms3 - Prescription Opioid Use ms3 - Patient Portal Instructions ms3 - Leadership Thank You Letter ms3 Signatures: Dispatcher [employer] EDMS Star Mireles DO DO ms3 Elinor Weiss cp4 Corrections: (The following items were deleted from the chart) 20:41 20:40 BASIC METABOLIC PANEL+C.LAB.BRZ ordered. EDMS EDMS 20:41 20:40 CBC+H.LAB.BRZ ordered. EDMS EDMS 20:41 20:40 Troponin High Sensitivity+C.LAB.BRZ ordered. EDMS EDMS 21:21 20:40 IV Saline Lock ordered. ms3 cp4 21:21 20:40 Labs collected and sent ordered. ms3 cp4
[2024-12-28 21:46] VITALS: BP 144/78; TEMP 98.1; O2SAT 99
== END 2024-12-28 21:31 | disposition home or self-care (01) ==
LOC: ER 20:31
DX: O16.3 Unspecified maternal hypertension, third trimester (principal); Z3A.28 28 weeks gestation of pregnancy
CPT/HCPCS: 93005; 99283; J7030